=== PATIENT | male | born 1955 | race Two or more races ===

== ENCOUNTER 2020-02-17 18:46 | Inpatient (IN) | payer OTHER ==
[~2020-02-17] VITALS: Ht 177.8 cm; Wt 139.9 kg
[2020-02-17 19:24] LABS: Basophils # (auto) 0.1 10 ^3/uL (0-0.2); Basophils % (auto) 0.6 % (0.0-2.0); Eosinophils # (auto) 0 10 ^3/uL (0-0.8); Eosinophils % (auto) 0.1 % (0.0-7.0); Hemoglobin 11.6 g/dL (13.5-17.5); Lymphocytes # (auto) 0.9 10 ^3/uL (0.4-5.4); Lymphocytes % (auto) 5.5 % (10.0-50.0); Mean Corpuscular Hemoglobin 29.9 pg (28.0-32.0); Mean Corpuscular Hgb Conc. 32.2 g/dL (32.0-36.0); Mean Corpuscular Volume 92.8 fL (80.0-100.0); Monocytes # (auto) 1.3 10 ^3/uL (0-1.3); Monocytes % (auto) 7.8 % (0.0-12.0); Neutrophils # (auto) 14.1 10 ^3/uL (1.6-8.6); Platelet Count (auto) 125 10^3/uL (140-450); Red Blood Cells 3.88 10^6/uL (4.5-5.90); Red Cell Distribution Width 14.5 % (11.8-14.3); White Blood Cell 16.4 10^3/uL (4.4-10.8)
[2020-02-17] MEDS ORDERED: SODIUM CHLORIDE 0.9% 1,000 ML IV ONE ×2 (19:30→20:15)
[2020-02-17] MEDS ORDERED: ACETAMINOPHEN 500 MG TAB PO ONE (19:45)
[2020-02-17 19:51] LABS: Alanine Aminotransferase 28 U/L (16-61); Albumin 2.7 g/dL (3.4-5.0); Anion Gap 9 (5-15); Aspartate Aminotransferase 56 U/L (15-37); BUN/Creatinine Ratio 7.6; Blood Alcohol < 3.0 mg/dL (0-5); Blood Urea Nitrogen 52 mg/dL (7-18); Calcium 8.5 mg/dL (8.5-10.1); Carbon Dioxide 23 mmol/L (21-32); Chloride 99 mmol/L (98-107); GFR African American 10 mL/min; GFR Non-African American 9 mL/min; Glucose 193 mg/dL (74-106); Potassium 4.9 mmol/L (3.5-5.1); Sodium 131 mmol/L (136-145)
[2020-02-17 19:54] LABS: INR 1.14 (0.9-1.15); Partial Thromboplastin Time 33.8 sec (23.0-31.2)
[2020-02-17 19:56] LABS: Alkaline Phosphatase 76 U/L (45-117); Bilirubin, Total 0.9 mg/dL (0.2-1.0)
[2020-02-17 20:38] LABS: Urine Bacteria FEW /hpf (None Seen); Urine Blood 2+ /uL (Negative); Urine Hyaline Cast MANY /lpf (0 - 2); Urine Mucus FEW (None Seen); Urine Specific Gravity 1.028 (1.001-1.035); Urine WBC 100 /hpf (0 - 3); Urine WBC Clumps PRESENT /hpf (None Seen)
[2020-02-17 20:56] LABS: Alcohol, Urine < 3.0 mg/dL (0-10); Amphetamine Screen, Urine NEGATIVE (NEGATIVE); Barbiturate Scree,Urine NEGATIVE (NEGATIVE); Benzodiazephine Screen, Urine NEGATIVE (NEGATIVE); Cannabinoid Screen, Urine NEGATIVE (NEGATIVE); Cocaine Screen, Urine NEGATIVE (NEGATIVE); Opiate Scree,Urine NEGATIVE (NEGATIVE); Phencyclidine Screen, Urine NEGATIVE (NEGATIVE)
[2020-02-17] MEDS ORDERED: PIPERACILLIN-TAZOB 3.375GM 100 ML IV ONE (21:15)
[2020-02-17] MEDS ORDERED: VANCOMYCIN 1GM/250ML 250 ML IV ONE (21:15)
[2020-02-17] MEDS ORDERED: LORazepam 2MG/ML-1ML VIAL IV ONE (21:45)
[2020-02-17 22:31] LABS: Lactic Acid w/Reflex 3.4 mmol/L (0.4-2.0)
[2020-02-17] MEDS ORDERED: NOREPINEPHRINE 8 MG/250ML KIT 250 ML IV ONE (23:05)
[2020-02-17] MEDS: NOREPINEPHRINE 8 MG/250ML KIT 250 ML IV SCH (23:10)
[2020-02-17] MEDS ORDERED: NOREPINEPHRINE 8 MG/250ML KIT 250 ML IV SCH (23:15)
[2020-02-17] MEDS ORDERED: ETOMIDATE (2MG/ML) 20ML VIAL IV ONE (23:30)
[2020-02-17] MEDS ORDERED: SUCCINYLCHOLINE CHLORIDE 20 MG/ML 10ML VIAL IV ONE (23:30)
[2020-02-17] MEDS ORDERED: fentaNYL Drip 2500mCg/250mlNS 250 ML IV ONE (23:47)
[2020-02-17] MEDS ORDERED: MIDAZOLAM HCL 5 MG/ML-1ML VIAL ONE (23:58)
[2020-02-17] MEDS: fentaNYL Drip 2500mCg/250mlNS 250 ML IV SCH (23:59)
[2020-02-18] VITALS (73 sets, daily range): BP systolic 55–147; BP diastolic 23–66
[2020-02-18] MEDS ORDERED: MIDAZOLAM DRIP 50 mg/50mL 50 ML IV ONE (00:21)
[2020-02-18] MEDS ORDERED: MIDAZOLAM HCL 5 MG/ML-1ML VIAL IV ONE (00:30)
[2020-02-18] MEDS: MIDAZOLAM DRIP 50 mg/50mL 50 ML IV SCH ×2 (00:33→19:30)
[2020-02-18] MEDS ORDERED: NITROGLYCERIN 0.4 MG SL TAB SL PRN (01:30)
[2020-02-18] MEDS ORDERED: VANCOMYCIN PER PHARMACY 0 MG IV SCH (01:30)
[2020-02-18] MEDS ORDERED: ONDANSETRON HCL 4 MG/2 ML VIAL IV PRN (01:30)
[2020-02-18] MEDS ORDERED: MORPHINE SULF INJ 2 MG/ML SYRINGE 1ML IV PRN (01:30)
[2020-02-18] MEDS ORDERED: SODIUM CHLORIDE 0.9% 1,000 ML IV SCH (01:30)
--- NOTE | 2020-02-18 02:53 | NUR ---
Admit to ICU from ER on RAPHAEL Rubioadmitted to ICU via guralexa on monitoring manager, intubated and being bagged by Respiratory Therapist. Patient transfered to bed, connected to mechanical ventilator by therapist, PRUDENCE at bedside. Patient connected to ICU monitoring, weighed by bedscale, oriented to OMAR BAL, primary RN, unit, ventilator and sedation. Neuro: bilateral pupils 2 mm/pinpoint; flaccid extremities; hypoactive cough/gag. Cardio: NSR 80s no ectopy noted; BP very low at 62/23; all pulses palpable; no edema noted. Resp: ET size 7.5/22 at the lip; settings PC rate 18, pressure 26, FiO2 75%, PEEP 5; anterior lung sounds diminished throughout; thin and clear secretions in mouth and ET tube. GI: NPO; inserted a 16 F NGT in right nare, asparted gastric contents, will obtain chest xray to confirm placement; absent bowel sounds; unknown last BM. : rodriguez inserted in ER; sediment/dark marya urine. Skin: left mehta abrasion optifoam changed; multiple abdominal incisions, two incisions with steri strips, others with glue/bandaids CDI. IVs: right AC 18 g running NS @ 60 inserted on 02/17/20; right hand 20 g running Levo @ 16 inserted on 02/17/20; IV left forearm 20 g inserted upon arrival to ICU 02/18/20 running Fentanyl at 100 mcg and Versed @ 4. Pending CT abdomen/pelvic/chest and head; also pending a pulmonary consultation with Dr. Chappell for acute respiratory failure. Will continue to round/reposition/perform oral care prn.
--- NOTE | 2020-02-18 04:00 | NUR ---
Cardiology consultation placed with approval from early interventionist hospitalist Mya for critically high troponins trending up. Last troponin 1.640.
--- NOTE | 2020-02-18 05:58 | NUR ---
Attempted to call CT to state patient's weight of 144.5 kg to see if CTs can be completed. No answer.
[2020-02-18] MEDS ORDERED: PIPERACILLIN-TAZOB 2.25GM 50 ML IV SCH (06:00)
--- NOTE | 2020-02-18 06:08 | NUR ---
Spoke with radiology/CT personnel, will call [phone] to have white lead grinder evaluate patient for CT. Patient is under the weight limit but abdominal circumference could possibly be to large for the machine.
--- NOTE | 2020-02-18 06:34 | NUR ---
Call from patient's sister Liliana: According to patient's sister, the patient recently had abdominal surgery related to colon cancer at [facility]. The patient was discharged home to his house. He lives home alone per the sister but lives close to a friend. The friend went to check on the patient after he wasn't returning phone calls and found the patient in his car with the door open, keys in ignition, altered. After the friend took the patient to his house, the patient was still altered and the friend called EMS. Per the sister, the patient has a history of CHRISTIAN with CPAP use, MN, HTN, CKD previously borderline for dialysis, colon cancer that was diagnosed 2 1/2 months ago, diabetes, and liver disease. Obtained med rec from last March but she states that [facility] should have the updated list as he was just discharged on Wednesday. Sister Liliana updated on patient's current status and pending orders. She wants to speak to the attending physician when they round. Will put note on hard chart and endorse to day shift RN.
[2020-02-18] MEDS ORDERED: METO5TAB56 PO (06:44)
[2020-02-18] MEDS ORDERED: METF-371 PO (06:44)
[2020-02-18] MEDS ORDERED: SIMV-8 PO (06:44)
[2020-02-18] MEDS ORDERED: LISI-275 PO (06:44)
[2020-02-18] MEDS ORDERED: POTA10TA51 PO (06:44)
[2020-02-18] MEDS ORDERED: METO-158 PO (06:44)
[2020-02-18] MEDS ORDERED: TICA90TA PO (06:44)
[2020-02-18] MEDS ORDERED: FURO40TA4 PO (06:44)
[2020-02-18] MEDS ORDERED: ASPI-543 PO (06:44)
--- NOTE | 2020-02-18 06:45 | NUR ---
TITRATED FIO2 DOWN TO 50%, SPO2 MAINTAINING 96%.
[2020-02-18 07:36] LABS: Eosinophils # (auto) 0.1 10 ^3/uL (0-0.8); Eosinophils % (auto) 0.9 % (0.0-7.0); Lymphocytes # (auto) 1.2 10 ^3/uL (0.4-5.4)
[2020-02-18 07:38] LABS: Basophils # (auto) 0.1 10 ^3/uL (0-0.2); Basophils % (auto) 0.4 % (0.0-2.0); Hematocrit 34.8 % (41.0-53.0); Hemoglobin 10.5 g/dL (13.5-17.5); Lymphocytes % (auto) 9.5 % (10.0-50.0); Mean Corpuscular Hemoglobin 29.6 pg (28.0-32.0); Mean Corpuscular Hgb Conc. 30.3 g/dL (32.0-36.0); Mean Corpuscular Volume 97.6 fL (80.0-100.0); Monocytes # (auto) 1.2 10 ^3/uL (0-1.3); Monocytes % (auto) 9.6 % (0.0-12.0); Neutrophils # (auto) 10.1 10 ^3/uL (1.6-8.6); Neutrophils % (auto) 79.6 % (37.0-80.0); Nucleated Red Blood Cells % 0.1 %; Platelet Count (auto) 137 10^3/uL (140-450); Red Blood Cells 3.56 10^6/uL (4.5-5.90); Red Cell Distribution Width 15.5 % (11.8-14.3); White Blood Cell 12.7 10^3/uL (4.4-10.8)
[2020-02-18 08:01] LABS: Albumin 2.3 g/dL (3.4-5.0); Calcium 8.2 mg/dL (8.5-10.1); Potassium 4.7 mmol/L (3.5-5.1)
[2020-02-18 08:09] LABS: BUN/Creatinine Ratio 9.5; Bilirubin, Total 1.2 mg/dL (0.2-1.0); Total Protein 5.8 g/dL (6.4-8.2)
--- NOTE | 2020-02-18 09:50 | NUR ---
MD Eid at bedside assessing pt, New orders received.
--- NOTE | 2020-02-18 09:55 | NUR ---
Cardiology Received call from MD Linda, made aware of troponin levels trending upward. stated to monitor no intervention at this time.
[2020-02-18] MEDS: ENOXAPARIN SOD 150 MG/1 ML SYRINGE SC SCH (10:00)
[2020-02-18] MEDS ORDERED: ENOXAPARIN SOD 100 MG/1 ML SYRINGE SC SCH (10:00)
[2020-02-18] MEDS ORDERED: HEPARIN SODIUM (PORCINE) 5000 UNITS/ML 1ML VIAL SC SCH (10:00)
[2020-02-18] MEDS ORDERED: LINEZOLID 600MG/300ML 300 ML IV SCH (10:00)
--- NOTE | 2020-02-18 10:00 | NUR ---
Nephrology MD Izquierdo phoned about pt, New orders received
--- NOTE | 2020-02-18 10:25 | NUR ---
WOUND CARE NOTE: Wound care in to see patient due to low Omi score of 13 and intubation status putting patient to high risk for skin breakdown. Patient is 65 years old male with admitting diagnosis of Acute Resp Failure. Patient is resting in low air loss bed in ICU Rm. 109. Patient is on airborne precaution to R/O CoVid. Patient appears to be in no pain using Guillaume Oh Faces Pain Scale. Skin assessment done with the assistance of patient's nurse, ANDREEA Toney. Well approximated incision noted to patient's medial abdomen measuring 8cm and multi puncture, small incisions noted to patient's Rt and Lt.upper and lower abdominal quadrant, history of colon surgery at different facility. Medial abdominal incision is open to air, small/puncture incisions has intact steri strips and band aids, surrounding skin is pink, clean and dry. Patient's L mehta noted with 2.5x0.8cm open partial thickness skin tear. Wound is red with pink siva wound, no drainage/odor noted. Bedside nurse, cleansed patient's L mehta skin tear, applied Thera honey and covered with Opti foam gentle dressing per MD order. No pressure injury noted. Repositioned patient for comfort facing his Lt side, redistributed pressure points with pillows. Patient tolerated well. ANDREEA Toney at bedside. RECOMMENDATION: Nursing to continue with BID/PRN cleaning and application of Barrier cream to sacral, buttocks as preventative,Q3Days/PRN dressing change to L mehta skin tear per MD order, frequent turning and repositioning schedule as condition permits, redistribute pressure points with pillows, elevate heels on pillows, continue monitoring by wound care while patient is mechanically ventilated. Addendum: 02/18/20 at 1215 by Veroncia Gottlieb RN Amended: Links added.
--- NOTE | 2020-02-18 10:30 | NUR ---
Obtained consent for release of medical records from sister, MARTIN Ford
--- NOTE | 2020-02-18 11:01 | NUR ---
Called [facility] in [place] where pt was discharged from to get medical records per MD, beater operator stated medical records is closed today. No answer from phone number they transferred me to.
--- NOTE | 2020-02-18 12:10 | NUR ---
RT Transport Note: Patient transported to RADIOLOGY/CT with ANDREEA REED. Patient transported on cardiac rehabilitation program director with alarms set and audible, transport vent connected to O2 tank, ambu-bag/mask available with transport. Patient returned to ICU 109 with no adverse reaction noted. Transport completed without incident.
--- NOTE | 2020-02-18 12:29 | NUR ---
Pt taken to CT via ACLS guidelines and back without any events.
--- NOTE | 2020-02-18 12:42 | NUR ---
TITRATED FIO2 TO 35%, SPO2 MAINTAINING 95%
[2020-02-18] MEDS: ACETAMINOPHEN 650 mg PER 20.3 mL UD PO PRN ×2 (12:49→19:30)
[2020-02-18 12:51] LABS: Sodium Urine 16 mmol/L (40-220)
[2020-02-18] MEDS: MEROPENEM 500MG IVPB 50 ML IV SCH (13:00)
[2020-02-18] MEDS: LINEZOLID 600MG/300ML 300 ML IV SCH ×2 (13:00→23:57)
--- NOTE | 2020-02-18 13:00 | NUR ---
Temperature Temp of 102.0 MD michaud aware and ordered 650 mg of liquid tylenol. Will administer and reassess. Cooling measure applied; ice packs bilaterally and cooling blanket placed underneath pt.
[2020-02-18 13:01] LABS: Creatinine, Urine 379 mg/dL (30.0-125.0)
--- NOTE | 2020-02-18 13:44 | NUR ---
Surgical Consult Received call from Dr. Enciso, stated to obtain medical records first. aware that the facility attempting to obtain medical records from is closed today.
[2020-02-18] MEDS: SODIUM BICARBONATE 50ML VIAL 50 ML in SOD CHL 0.45% 1,000 ML IV SCH ×2 (13:59→23:45)
--- NOTE | 2020-02-18 15:03 | NUR ---
VENT CHANGES RT AT BEDSIDE, NOTICED CHANGES TO VENT SETTINGS. VERIFIED ORDERS WITH DR. BRAVO. PT NOW ON SETTINGS: PCV, RR 18, IP 18, PEEP +7, I TIME 0.7, FIO2 40%. ABG TO FOLLOW TOMORROW MORNING. NOTIFIED RN OF CHANGES.
--- NOTE | 2020-02-18 15:14 | NUR ---
PICC line placement Patient/Patient significant other educated on need for PICC line placement. All risks and benefits explained and all questions and concerns addressed prior to procedure. Noted past medical history and allergies with no contraindications. INR and Plt counts within acceptable range. 5 fr PICC line inserted via RIGHT BASILIC vein using My [employer]'s [employer] R[employer] US and Tip Location System. Sterile technique with maximum barrier precautions utilized. Blood return obtained from each of THE THREE lumens and each flushed easily with NS using proper technique. 5F PICC secured with Stat-lock; biodisc and occlusive dressing applied. Stat portable chest x-ray obtained for PICC tip placement. *Baseline Arm Circumference 39CM. INTERNAL LENGTH 44CM. EXTERNAL LENGTH 0 CM. . PICC lot # [id number]. Note:
[2020-02-18] MEDS ORDERED: LIDOCAINE 1% (LOCAL ANESTH.) PF 5ml SDV ID ONE (15:15)
--- NOTE | 2020-02-18 15:21 | NUR ---
OK to use PICC line Xray completed. OK to use PICC line . PRIMARY RN NOTIFIFED
--- NOTE | 2020-02-18 16:30 | NUR ---
Medical records obtained and placed in chart
[2020-02-18] MEDS ORDERED: VANCOMYCIN 1GM/250ML 250 ML IV ONE (17:00)
[2020-02-18] MEDS ORDERED: DEXTROSE (50%) 50ML SYRG IV PRN (17:15)
[2020-02-18] MEDS ORDERED: OPTISON 3ml Vial for INJ IV ONE (17:19)
--- NOTE | 2020-02-18 17:30 | NUR ---
Deepa administered for echo. LOT:[id number] EXP: 03 JUN 2021
[2020-02-18] MEDS: ACCU-CHEK COMFORT CURVE STRIP VI SCH ×2 (18:00→23:59)
[2020-02-18] MEDS: InsuLIN REG 1unit/0.01ml Soln (100units/ml) SC SCH ×2 (18:00→23:58)
[2020-02-18] MEDS: fentaNYL Drip 2500mCg/250mlNS 250 ML IV SCH (18:29)
[2020-02-18] MEDS: NOREPINEPHRINE 8 MG/250ML KIT 250 ML IV SCH (19:28)
--- NOTE | 2020-02-18 19:43 | NUR ---
Report given to die sinking machine operator RN
--- NOTE | 2020-02-18 19:45 | NUR ---
Opening Shift Note: Neuro: bilateral pupils 2 mm/pinpoint; flaccid extremities; hypoactive cough/gag. Cardio: NSR 90s - ST 100s BBB; SBPs 90s; all pulses palpable; no edema noted. Resp: ET size 7.5/22 at the lip; settings PC rate 18, pressure 18, FiO2 40%, PEEP 7; anterior lung sounds diminished throughout; thin and clear secretions in mouth and ET tube. GI: NPO; 16 F NGT in right nare, absent bowel sounds; unknown last BM. : rodriguez inserted in ER; sediment/dark marya urine. Skin: left mehta abrasion optifoam changed; multiple abdominal incisions, two incisions with steri strips, others with glue/bandaids CDI. IVs: right AC 18 g IID inserted on 02/17/20; right hand 20 g running NS/ABX 02/17/20; IV left forearm 20 g inserted on 02/18/20 IID; RUE PICC inserted on 02/18/20 running Fentanyl @ 150, Versed 7, Levo @ 26, and Bicarb @ 100. Pending EEG and surgical consultation with Dr. Enciso/CMP/CBC/ABG/CXR in AM. Will continue to round/reposition/perform oral care prn.
[2020-02-18] MEDS: SODIUM CHLOR 0.9% PF (SALINE LOCK) 10ML VIAL/SYR IV SCH (20:37)
[2020-02-18] MEDS ORDERED: VASOPRESSIN 20 UNIT/ML ONE (21:33)
[2020-02-18] MEDS: VASOPRESSIN 50 UNITS in D5W 5% 247.5 ML IV SCH (21:45)
--- NOTE | 2020-02-18 21:45 | NUR ---
Low blood pressures: RR is in the 30s despite current sedation and not getting volume, page sent to combination saw operator hospitalist for addition pressor as I increase sedation medications. New order obtained for vasopressin.
--- NOTE | 2020-02-18 23:40 | NUR ---
Page sent to Dr. Link related to rate still in the 30s despite max sedation on Versed and Fentanyl.
[2020-02-19] VITALS (102 sets, daily range): BP systolic 77–179; BP diastolic 30–71
[2020-02-19] MEDS: NOREPINEPHRINE 8 MG/250ML KIT 250 ML IV SCH ×5 (00:23→23:51)
[2020-02-19] MEDS: MIDAZOLAM DRIP 50 mg/50mL 50 ML IV SCH ×4 (00:24→16:11)
[2020-02-19] MEDS: ACETAMINOPHEN 650 mg PER 20.3 mL UD PO PRN (02:00)
--- NOTE | 2020-02-19 02:53 | NUR ---
Patient bathe/linen change Patient given complete CHG bath. Skin integrity assessed for any changes. Bandaids on abdomen changed. Linens and gown changed. Patient repositioned for comfort.
[2020-02-19 04:06] LABS: Basophils # (auto) 0.1 10 ^3/uL (0-0.2); Basophils % (auto) 0.6 % (0.0-2.0); Eosinophils # (auto) 0.1 10 ^3/uL (0-0.8); Eosinophils % (auto) 0.7 % (0.0-7.0); Hematocrit 34.6 % (41.0-53.0); Hemoglobin 10.9 g/dL (13.5-17.5); Lymphocytes # (auto) 1.2 10 ^3/uL (0.4-5.4); Lymphocytes % (auto) 7.9 % (10.0-50.0); Mean Corpuscular Hemoglobin 30.2 pg (28.0-32.0); Mean Corpuscular Hgb Conc. 31.5 g/dL (32.0-36.0); Mean Corpuscular Volume 95.7 fL (80.0-100.0); Monocytes # (auto) 1.9 10 ^3/uL (0-1.3); Monocytes % (auto) 12.2 % (0.0-12.0); Neutrophils # (auto) 12.3 10 ^3/uL (1.6-8.6); Neutrophils % (auto) 78.6 % (37.0-80.0); Nucleated Red Blood Cells % 0.1 %; Platelet Count (auto) 174 10^3/uL (140-450); Red Blood Cells 3.61 10^6/uL (4.5-5.90); Red Cell Distribution Width 15.3 % (11.8-14.3); White Blood Cell 15.7 10^3/uL (4.4-10.8)
[2020-02-19 04:24] LABS: Albumin 2.3 g/dL (3.4-5.0); Calcium 8.4 mg/dL (8.5-10.1)
[2020-02-19 04:27] LABS: BUN/Creatinine Ratio 9.3; Bilirubin, Total 0.7 mg/dL (0.2-1.0); Total Protein 6.8 g/dL (6.4-8.2)
[2020-02-19 04:50] LABS: Potassium 6.3 mmol/L (3.5-5.1)
[2020-02-19] MEDS: ACCU-CHEK COMFORT CURVE STRIP VI SCH ×3 (05:08→23:01)
[2020-02-19] MEDS: InsuLIN REG 1unit/0.01ml Soln (100units/ml) SC SCH ×3 (05:08→22:55)
--- NOTE | 2020-02-19 05:26 | NUR ---
Critical high potassium: Page sent to airfield operations specialist hospitalist in regards to critical high potassium of 6.3.
[2020-02-19] MEDS: fentaNYL Drip 2500mCg/250mlNS 250 ML IV SCH ×2 (06:50→19:16)
--- NOTE | 2020-02-19 06:50 | NUR ---
Orders received from economic forecaster hospitalist for 25 ml of Dextrose; 10 units of regular insulin IVP; 1 g of calcium gluconate; 1 amp of bicarbonate; 10 g of lokelma.
--- NOTE | 2020-02-19 06:50 | NUR ---
Spoke with Dr. Link about ventilator dyssynchrony despite increasing sedation. Stated he will make changes once he rounds on patient.
[2020-02-19] MEDS ORDERED: InsuLIN REG 1unit/0.01ml Soln (100units/ml) IV ONE (07:45)
[2020-02-19] MEDS ORDERED: DEXTROSE (50%) 50ML SYRG IV ONE (07:45)
[2020-02-19] MEDS ORDERED: SODIUM ZIRCONIUM CYCL 10 GM PAK PO ONE (07:45)
[2020-02-19] MEDS ORDERED: SODIUM BICARBONATE 8.4% INJ 50ML SYRINGE IV ONE (07:45)
[2020-02-19] MEDS ORDERED: CALCIUM GLUC 4.65meq/50ml D5AE 50 ML IV ONE (07:45)
--- NOTE | 2020-02-19 07:50 | NUR ---
DR. RIVAS HERE TO SEE PATIENT. SEE MD NOTES AND EMR FOR ANY NEW ORDERS.
--- NOTE | 2020-02-19 08:00 | NUR ---
Respiratory note: AFTER REVIEWING CXR, ETT ADVANCED. ETT NOW SECURED AT 25 CM. ANDREEA BEE AT BEDSIDE AND AWARE OF CHANGE.
[2020-02-19] MEDS: SODIUM BICARBONATE 50ML VIAL 50 ML in SOD CHL 0.45% 1,000 ML IV SCH (08:22)
[2020-02-19] MEDS ORDERED: PHENYLEPHRINE IV 250 ML IV ONE ×2 (08:45→09:01)
[2020-02-19] MEDS: PHENYLEPHRINE IV 250 ML IV SCH ×2 (09:15→13:26)
[2020-02-19] MEDS: SODIUM CHLOR 0.9% PF (SALINE LOCK) 10ML VIAL/SYR IV SCH ×2 (09:16→22:34)
[2020-02-19] MEDS: MEROPENEM 500MG IVPB 50 ML IV SCH (09:18)
[2020-02-19] MEDS: ENOXAPARIN SOD 150 MG/1 ML SYRINGE SC SCH (09:40)
--- NOTE | 2020-02-19 10:30 | NUR ---
CALL OUT TO DR. ALONSO TO RE-REPORT ABG WITH PH OF 7.05. AWAITING CALL BACK.
--- NOTE | 2020-02-19 11:04 | NUR ---
DR. PIERRE HERE TO SEE PATIENT. SEE MD NOTES AND EMR FOR ANY NEW ORDERS.
[2020-02-19] MEDS: LINEZOLID 600MG/300ML 300 ML IV SCH ×2 (12:10→23:50)
--- NOTE | 2020-02-19 12:52 | NUR ---
DR. IYER HERE TO SEE PATIENT. SEE MD NOTES AND EMR FOR ANY NEW ORDERS.
--- NOTE | 2020-02-19 12:55 | NUR ---
CALLED AND SPOKE TO SISTER CHADWICK WHO STATED THAT SHE IN FACT DOES WANT PATIENT TO BE A MODIFIED DNR. SHE IS AWARE THAT PATIENT IS CURRENTLY SEDATED AND INTUBATED AND ON PRESSORS HOWEVER, SHE DOES NOT WANT CPR, CHEST COMPRESSIONS OR SHOCK TO RESTART HEART IF IT SHOULD STOP. SISTER WISHES FOR HER BROTHER TO PASS AWAY PEACEFULLY.
[2020-02-19] MEDS ORDERED: HYDROCORTISONE SOD SUCC 100 MG/2ML INJ VIAL IV ONE (13:00)
[2020-02-19] MEDS ORDERED: DEXTROSE (50%) 50ML SYRG IV PRN ×2 (13:00→19:45)
[2020-02-19] MEDS: VASOPRESSIN 50 UNITS in D5W 5% 247.5 ML IV SCH (13:26)
[2020-02-19] MEDS: SODIUM BICARBONATE 50ML VIAL 150 ML in D5W 5% 1,000 ML IV SCH ×2 (13:27→14:53)
[2020-02-19] MEDS ORDERED: BUMETANIDE 2.5mg/10ml (0.25 mg/ml) INJ IV ONE (16:00)
--- NOTE | 2020-02-19 17:20 | NUR ---
REPORT RECEIVED FROM DAY RN. PT INTUBATED AND SEDATED. NO DISTRESS NOTED. SEE IV SPREADSHEET FOR LAST TITRATION CHANGES. WILL CONTINUE TO MONITOR.
[2020-02-19] MEDS ORDERED: InsuLIN REG 1unit/0.01ml Soln (100units/ml) SC SCH (18:00)
[2020-02-19] MEDS ORDERED: ACCU-CHEK COMFORT CURVE STRIP VI SCH (18:00)
[2020-02-19] MEDS: LACTULOSE 20Gm/30ML SOLN PO SCH ×2 (18:03→22:35)
--- NOTE | 2020-02-19 19:30 | NUR ---
REPORT RECEIVED, ASSUMED CARE.
--- NOTE | 2020-02-19 19:33 | NUR ---
CLOSING NOTE REPORT GIVEN TO SANTOS RN. PT INTUBATED AND SEDATED. BED LOCKED FOR SAFETY.
--- NOTE | 2020-02-19 20:37 | NUR ---
Respiratory note: AT BEDSIDE FOR ROUTINE VENT CHECK. NO CHANGES MADE. PTS CURRENT TEMP IS 100.0F. WILL CONTINUE TO MONITOR.
--- NOTE | 2020-02-19 21:22 | NUR ---
CALLED SPOKE WITH SISTER BEN OF PT, DECISION MAKER AT THIS TIME. CONFIRMED WITH HER OKAY FOR ACLS DRUGS AND VASOPRESSORS.
[2020-02-19] MEDS: HYDROCORTISONE SOD SUCC 100 MG/2ML INJ VIAL IV SCH (22:35)
--- NOTE | 2020-02-19 23:01 | NUR ---
PAGE OUT TO HOSPITALIST REGARDING BLOOD SUGAR 463, GAVE 20 UNITS REGULAR INSULIN SUB Q PER MD ORDER. AWAITING CALLBACK.
--- NOTE | 2020-02-19 23:49 | NUR ---
3RD PAGE OUT FOR HOSPITALIST.
[2020-02-20] VITALS (104 sets, daily range): BP systolic 84–182; BP diastolic 38–87
[2020-02-20] MEDS: ACCU-CHEK COMFORT CURVE STRIP VI SCH ×6 (00:59→20:00)
[2020-02-20] MEDS: InsuLIN REG 1unit/0.01ml Soln (100units/ml) SC SCH ×6 (01:00→20:00)
[2020-02-20] MEDS: PHENYLEPHRINE IV 250 ML IV SCH ×3 (01:40→17:48)
--- NOTE | 2020-02-20 01:46 | NUR ---
PT DEANNE, MARCELLO BLUE CALLED. PT CHEM CODE. Addendum: 02/20/20 at 0546 by Reginaldo Cordova RN WRONG PT
--- NOTE | 2020-02-20 01:47 | NUR ---
EPINEPHRINE IVP GIVEN, PT STILL ASYSTOLE, ALL SEDATION STOPPED. Addendum: 02/20/20 at 0546 by Reginaldo Cordova RN WRONG PT.
--- NOTE | 2020-02-20 01:48 | NUR ---
HOSPITALIST @ BEDSIDE. Addendum: 02/20/20 at 0547 by Reginaldo Cordova RN WRONG PT.
--- NOTE | 2020-02-20 01:49 | NUR ---
2ND EPINEPHRINE IVP GIVEN, NO CHANGE, PT STILL ASYSTOLE. PT CHEM CODE PER FAMILY WISHES. HOSPITALIST NOTIFIED. Addendum: 02/20/20 at 0548 by Reginaldo Cordova RN WRONG PT.
--- NOTE | 2020-02-20 01:50 | NUR ---
DOPPLER USED, NO PULSE NOTED, PT STILL ASYSTOLE, CODE STOPPED, PT PRONOUNCED. Addendum: 02/20/20 at 0549 by Reginaldo Cordova RN WRONG PT.
[2020-02-20] MEDS: LACTULOSE 20Gm/30ML SOLN PO SCH (02:00)
[2020-02-20 04:43] LABS: Basophils # (auto) 0 10 ^3/uL (0-0.2); Basophils % (auto) 0.1 % (0.0-2.0); Eosinophils # (auto) 0 10 ^3/uL (0-0.8); Eosinophils % (auto) 0.1 % (0.0-7.0); Hematocrit 31.7 % (41.0-53.0); Hemoglobin 10.3 g/dL (13.5-17.5); Lymphocytes # (auto) 0.6 10 ^3/uL (0.4-5.4); Lymphocytes % (auto) 5.3 % (10.0-50.0); Mean Corpuscular Hemoglobin 30.1 pg (28.0-32.0); Mean Corpuscular Hgb Conc. 32.5 g/dL (32.0-36.0); Mean Corpuscular Volume 92.6 fL (80.0-100.0); Monocytes # (auto) 0.9 10 ^3/uL (0-1.3); Monocytes % (auto) 8.2 % (0.0-12.0); Neutrophils # (auto) 9.5 10 ^3/uL (1.6-8.6); Neutrophils % (auto) 86.3 % (37.0-80.0); Nucleated Red Blood Cells % 0.1 %; Platelet Count (auto) 137 10^3/uL (140-450); Red Blood Cells 3.42 10^6/uL (4.5-5.90); White Blood Cell 10.9 10^3/uL (4.4-10.8)
[2020-02-20 05:03] LABS: % Iron Saturation 19.5 % (20-55); Calcium 8.2 mg/dL (8.5-10.1)
[2020-02-20 05:05] LABS: BUN/Creatinine Ratio 10.7
[2020-02-20 05:21] LABS: Potassium 5.7 mmol/L (3.5-5.1)
--- NOTE | 2020-02-20 05:21 | NUR ---
FAMILY PICKED [facility], . CALLED [employer], NO ANSWER, LEFT MESSAGE. WILL NOTIFY TL AND HOUSE SUP, WHEN FAMILY FINISHED VISITING THEIR LOVED ONE. Addendum: 02/20/20 at 0525 by Reginaldo Cordova RN WRONG PT
--- NOTE | 2020-02-20 05:23 | NUR ---
ALL PT BELONGINGS GIVEN TO MAGNOLIA SANDIP AT [facility]. Addendum: 02/20/20 at 0524 by Reginaldo Cordova RN WRONG PT.
--- NOTE | 2020-02-20 05:26 | NUR ---
LAB CALLED: CRITICAL LABS K+ 5.7, TRENDING DOWN AND BLOOD GLUCOSE 484, HOSPITALIST AWARE OF CRITICALLY HIGH GLUCOSE. SPOKE WITH MOHINDER OSLITARIO HE SAID HE WOULD BRING IT UP TO AMY ABOUT MAYBE SWITCHING FLUIDS FROM D5W WITH 3 AMPS HCO3 @ 100ML/HR TO NA WITH 3 AMPS OF BICARB @ 100ML/HR.
[2020-02-20] MEDS ORDERED: LACTULOSE 20Gm/30ML SOLN ONE (05:59)
[2020-02-20] MEDS: SODIUM BICARBONATE 50ML VIAL 150 ML in SOD CHL 0.45% 1,000 ML IV SCH ×2 (06:53→18:11)
[2020-02-20] MEDS ORDERED: SODIUM CHL 0.9% 1000 ML BAG XX ONE (07:00)
[2020-02-20] MEDS: INSULIN LANTUS (GLARGINE) 1 /0.01ml (100units/ml) SC SCH (08:35)
[2020-02-20] MEDS ORDERED: ALBUTEROL SULF 2.5 MG/0.5ML(0.5%) NEB SOLN NEB ONE (08:45)
[2020-02-20] MEDS ORDERED: InsuLIN REG 1unit/0.01ml Soln (100units/ml) IV ONE (09:15)
--- NOTE | 2020-02-20 09:55 | NUR ---
MD AT BEDSIDE: Dr. Izquierdo at beside, discussed with him cancelation of Tansferrin by laboratory staff stating that this specimen is "a send out" and is "non-orderable".
[2020-02-20] MEDS: SODIUM CHLOR 0.9% PF (SALINE LOCK) 10ML VIAL/SYR IV SCH ×2 (10:00→22:00)
[2020-02-20] MEDS: HYDROCORTISONE SOD SUCC 100 MG/2ML INJ VIAL IV SCH ×2 (10:06→22:35)
[2020-02-20] MEDS: ENOXAPARIN SOD 150 MG/1 ML SYRINGE SC SCH (10:06)
[2020-02-20] MEDS: MEROPENEM 500MG IVPB 50 ML IV SCH (10:06)
[2020-02-20] MEDS: NOREPINEPHRINE 8 MG/250ML KIT 250 ML IV SCH ×2 (10:07→20:00)
[2020-02-20] MEDS: LINEZOLID 600MG/300ML 300 ML IV SCH (12:45)
--- NOTE | 2020-02-20 13:00 | NUR ---
CONSENTS OBTAINED; Consent for insertion of hemodialysis catheter obtained from patient's sister Liliana. Liliana states that she is driving from [place] and is expected to be in town by tomorrow.
--- NOTE | 2020-02-20 13:45 | NUR ---
AT BEDSIDE; Dr. Davies at bedside for dialysis catheter insertion. STAT CXR obtained.
[2020-02-20] MEDS ORDERED: HEPARIN SODIUM (PORCINE) 5000 UNITS/ML 1ML VIAL ONE (13:51)
--- NOTE | 2020-02-20 14:35 | NUR ---
CHEST X-RAY RESULTS; Chest X-ray results reviewed, no pneumo, catheter okay for use.
--- NOTE | 2020-02-20 14:47 | NUR ---
Nutrition Assessment Consider Nepro CS 1.8 at 45 ml/hr per MD approval while pt is receiving HD Est energy needs 1244-8127 kcal (11-14 kcal/kg BW 151kg) Est protein needs 91-113g (1.2-1.5g/kg IBW r/t pt is on HD) Will monitor and reassess prn. Addendum: 02/20/20 at [address] Amended: Links added.
--- NOTE | 2020-02-20 15:20 | NUR ---
DIALYSIS NURSE: Informed [facility] dialysis nurse that dialysis catheter is in place and is ready for use. States that he has been assigned to another patient.
[2020-02-20] MEDS ORDERED: BUMETANIDE 2.5mg/10ml (0.25 mg/ml) INJ IV ONE (15:30)
[2020-02-20 16:33] LABS: BUN/Creatinine Ratio 13.1; Calcium 7.4 mg/dL (8.5-10.1); Potassium 4.1 mmol/L (3.5-5.1)
[2020-02-20] MEDS ORDERED: BUMETANIDE INJECTION 10 ML ONE (18:09)
[2020-02-20] MEDS: fentaNYL Drip 2500mCg/250mlNS 250 ML IV SCH (20:00)
--- NOTE | 2020-02-20 20:00 | NUR ---
ADMITTED ON 02/12/2020. INITALLY, ALOC, FEVER, ELEVATED GLUCOSE. MD DIAGNOSIS: RESPIRATORY FAILURE, RENAL FAILURE, SEPSIS. CHADWICK, HIS SISTER IS COMING FROM [place] TO VISIT. INFORMED HER THAT SHE WOULD NOT BE ABLE TO VISIT DUE TO COVID GUIDELINES. SHE INFORMED ME THAT THEY WERE HALF THE WAY HERE AND STILL COMING. RECENT DISCHARGE FROM [facility] . THERE HE HAD COLON SURGERY. MIDLINE INCISION AND 6 PUNCTURE WOUNDS FROM THE LAPARASCOPIC PART OF THE PROCEDURE. ALL ARE CLOSED, DRY AND OPEN TO AIR. NO COUGH, BLINK, GAG REFLEX. PUPILS 3 AND BRISK. ORAL CAVITY: SUCTIONED A MODERATE AMOUNT OF WHITE SECRETIONS. ORAL CARE PERFORMED. ORALLY INTUBATED. ETT TO VENTILATOR. ON PRESSURE CONTROL VENTILATION. PEEP IS 7, FIO2 50%. PRESSURING THE VENTILATOR. INCREASED HIS SEDATION (FENTANYL) FROM 100 TO 125. LUNGS CLEAR. SMALL AMOUNT OF WHITE SECRETIONS SUCTIONED FROM THE ETT. RIGHT NARE NGT TO LIS. 50CC OF GREEN LIQUID IN CANNISTER. FLUSHED NGT WITH 30CC OF WATER. ABDOMEN IS LARGE, ROUND AND SOFT. NO BOWEL SOUNDS. TAO IN PLACE DRAINING A LARGE AMOUNT OF YELLOW LIQUID TO DOWN DRAIN BAG. PITTING EDEMA IN ARMS AND LEGS. SCDS ON. DIALYSIS CATHETER PATENT. DIALYSIS DUE IN AM. ON A SODIUM BICARB DRIP UNTIL AFTER DIALYSIS TOMORROW. CURRENT BICARB LEVEL IS 24. SBP SUPPORTED WITH LEVOPHED. HEART RHYTHM: NSR 74. HE HAS A TACHY LOGAN SYNDROME . NO ECTOPY SEEN AT THIS MOMENT.ALL PULSES PALPABLE AND WEAK. ALL EXTREMITIES WARM.
[2020-02-20] MEDS: VASOPRESSIN 50 UNITS in D5W 5% 247.5 ML IV SCH (20:45)
--- NOTE | 2020-02-20 22:00 | NUR ---
AT 2211, THE PATIENT HAD A TACHYCARDIA OF 150 THAT WAS SELF LIMITING. AT 2214 HE WENT DOWN TO 90. IT TOOK AWHILE FOR HIS RHYTHM TO GO BACK TO 70. IT WAS 100 WITH FREQUENT PACS AND THEN 90 WITH PACS. HIS BLOOD PRESSURE DID DROP TO 56/35 AT THE TIME WHEN HIS RATE WAS 150. LEVOPHED HAS STAYED AT 12MCG SINCE 1899. HIS NSR RESOLVED AND THE CURRENT BLOOD PRESSURE IS 90/50. HR IS 72. REPOSITIONED TO BACK. HIS VENTILATOR IS PRESSURING LESS ON HIS BACK. SUCTIONED THE ETT. ORAL CARE DONE. GOOD URINE OUTPUT.
[2020-02-21] VITALS (84 sets, daily range): BP systolic 72–179; BP diastolic 33–111
--- NOTE | 2020-02-21 | NUR ---
HAVE DECREASED THE LEVOPHED. NSR WITHOUT ECTOPY. HAS A BBB. SBP IMPROVING. NO FEVER. LUNGS CLEAR. SUCTIONED THE ETT. SMALL AMOUNT OF CREAMY SECRETIONS. ORAL CARE DONE. ORAL CAVITY CLEAN. ABDOMEN VERY ROUND, LARGE, SOFT. NO BOWEL SOUNDS. NGT CONTINUES TO DRAIN GREEN LIQUID. NOW HAVE 150CC. TAO OUTPUT SO FAR 1650CC. PITTING EDEMA IN ARMS AND LEGS PERSISTS. STARTED THE SHIFT WITH A FIO2 OF 50%, AT 2200 RT DECREASED IT TO 45%. ALL PULSES PALPABLE AND STRONG. ALL EXTREMITIES ARE WARM , BUT THE HANDS ARE COOL.
[2020-02-21] MEDS: LINEZOLID 600MG/300ML 300 ML IV SCH ×2 (00:07→12:15)
[2020-02-21] MEDS: InsuLIN REG 1unit/0.01ml Soln (100units/ml) SC SCH ×6 (00:12→20:00)
[2020-02-21] MEDS: MIDAZOLAM DRIP 50 mg/50mL 50 ML IV SCH (00:30)
--- NOTE | 2020-02-21 02:00 | NUR ---
TACHYCARDIA OF 140.
--- NOTE | 2020-02-21 02:30 | NUR ---
TACHYCARDIA HAS NOT RESOLVED, LIKE IT USUALLY DOES. HOSPITALIST PAGED. SBP DECREASED. INCREASED THE LEVOPHED
[2020-02-21] MEDS: PHENYLEPHRINE IV 250 ML IV SCH ×3 (02:40→19:20)
--- NOTE | 2020-02-21 02:45 | NUR ---
ORDER FOR 500 CC IV BOLUS
[2020-02-21] MEDS: ACCU-CHEK COMFORT CURVE STRIP VI SCH ×6 (04:00→20:00)
--- NOTE | 2020-02-21 04:00 | NUR ---
THE PATIENTS RHYTHM HAS RANGED FROM SINUS TACHY TO ATRIAL FIB. RATE HAS RANGED FROM 108 TO 160. THE BOLUS DID NOT WORK. CALL INTO HOSPITALIST. SBP SUPPORT WITH LEVOPHED HAS INCREASED. ORDER RECEIVED FOR AMIODARONE DRIP FROM CALEB LEW
[2020-02-21] MEDS ORDERED: AMIODARONE HCL (50 MG/ ML) 3 ML VIAL IV ONE (04:28)
[2020-02-21] MEDS ORDERED: AMIODARONE HCL 150 MG in D5W 5% 100 ML IV ONE (04:30)
[2020-02-21] MEDS ORDERED: AMIODARONE 450mg/250ml AE 250 ML IV ONE (04:31)
[2020-02-21] MEDS ORDERED: AMIODARONE 450mg/250ml AE 250 ML IV SCH (04:45)
--- NOTE | 2020-02-21 04:45 | NUR ---
AMIODARONE DRIP STARTED FOR A HEART RATE OF 140, HEART RHYTHM SINUS TACHYCARDIA/ATRIAL FIB. HEART RATE HAS COME DOWN INTO THE 130 RANGE. LEVOPHED INCREASED.
[2020-02-21] MEDS: SODIUM BICARBONATE 50ML VIAL 150 ML in SOD CHL 0.45% 1,000 ML IV SCH (05:00)
[2020-02-21] MEDS: NOREPINEPHRINE 8 MG/250ML KIT 250 ML IV SCH (05:00)
[2020-02-21 05:55] LABS: Basophils # (auto) 0 10 ^3/uL (0-0.2); Basophils % (auto) 0.2 % (0.0-2.0); Eosinophils # (auto) 0 10 ^3/uL (0-0.8); Eosinophils % (auto) 0.1 % (0.0-7.0); Hematocrit 33.3 % (41.0-53.0); Hemoglobin 10.9 g/dL (13.5-17.5); Lymphocytes # (auto) 0.7 10 ^3/uL (0.4-5.4); Mean Corpuscular Hemoglobin 29.8 pg (28.0-32.0); Mean Corpuscular Hgb Conc. 32.8 g/dL (32.0-36.0); Mean Corpuscular Volume 90.8 fL (80.0-100.0); Monocytes # (auto) 1.2 10 ^3/uL (0-1.3); Monocytes % (auto) 8.3 % (0.0-12.0); Neutrophils # (auto) 12.8 10 ^3/uL (1.6-8.6); Neutrophils % (auto) 86.4 % (37.0-80.0); Nucleated Red Blood Cells % 0.2 %; Platelet Count (auto) 184 10^3/uL (140-450); Red Blood Cells 3.67 10^6/uL (4.5-5.90); Red Cell Distribution Width 14.9 % (11.8-14.3); White Blood Cell 14.8 10^3/uL (4.4-10.8)
--- NOTE | 2020-02-21 06:00 | NUR ---
HR RANGE 121-139. STILL IS A SINUS TACHYCARDIA
[2020-02-21 06:06] LABS: BUN/Creatinine Ratio 16.2; Calcium 8.1 mg/dL (8.5-10.1); Potassium 4.6 mmol/L (3.5-5.1)
[2020-02-21] MEDS: INSULIN LANTUS (GLARGINE) 1 /0.01ml (100units/ml) SC SCH (06:53)
--- NOTE | 2020-02-21 07:30 | NUR ---
Opening Shift Note Received pt on mechanical ventilator. GRACIELA PICC line, see IV spreadsheet for infusion details. Pt on fentanyl, levophed and 1/2 ns 3 amp bicarb gtt. Matt cath to right IJ placed 02/19. Full assessment done, see interventions. Pt does not have cough/gag, facial grimaces to deep stimulation and seen extremity movement. HR in 130's in and out of sinus tachycardia to a-fib, pt started on amio gtt this am. Garcia catheter draining to gravity, free of kinks. Bed locked in lowest position. All alarms on and audible.
--- NOTE | 2020-02-21 08:30 | NUR ---
Dialysis nurse at bedside aware of unstable HR at this time. MD childress aware, told dialysis rn to hold off on dialysis at this time.
[2020-02-21] MEDS: ENOXAPARIN SOD 150 MG/1 ML SYRINGE SC SCH (09:26)
[2020-02-21] MEDS: HYDROCORTISONE SOD SUCC 100 MG/2ML INJ VIAL IV SCH ×2 (09:26→22:06)
[2020-02-21] MEDS: SODIUM CHLOR 0.9% PF (SALINE LOCK) 10ML VIAL/SYR IV SCH ×2 (10:00→22:06)
--- NOTE | 2020-02-21 10:30 | NUR ---
Left message with cardiology concerning pt's rhythm and rate. Awaiting call back
[2020-02-21] MEDS: MEROPENEM 500MG IVPB 50 ML IV SCH (10:33)
--- NOTE | 2020-02-21 10:53 | NUR ---
Nephrology rounding on pt Aware of increase in urine output over the night. Will hold off on dialysis at this time per MD.
[2020-02-21] MEDS: AMIODARONE 450mg/250ml AE 250 ML IV SCH (11:00)
--- NOTE | 2020-02-21 11:00 | NUR ---
Amio switched to .5 per protocol
[2020-02-21] MEDS ORDERED: SODIUM BICARBONATE 50ML VIAL 150 ML in SOD CHL 0.45% 1,000 ML IV SCH (11:30)
--- NOTE | 2020-02-21 14:00 | NUR ---
MD michaud aware of pt HR and rhythm. No new orders at this time. Left message with cardiology again.
--- NOTE | 2020-02-21 16:00 | NUR ---
Pulmonology rounding on pt. no new orders at this time
[2020-02-21] MEDS: fentaNYL Drip 2500mCg/250mlNS 250 ML IV SCH (16:50)
[2020-02-21] MEDS: BUMETANIDE 2.5mg/10ml (0.25 mg/ml) INJ IV SCH (18:09)
--- NOTE | 2020-02-21 19:58 | NUR ---
ADMITTED ON 02/12/2020. INITALLY, ALOC, FEVER, ELEVATED GLUCOSE. MD DIAGNOSIS: RESPIRATORY FAILURE, RENAL FAILURE, SEPSIS. CHADWICK, HIS SISTER IS HERE FROM [place] TO VISIT. RECENT DISCHARGE FROM THE [facility] . THERE HE HAD COLON SURGERY. MIDLINE INCISION AND 4 PUNCTURE WOUNDS FROM THE LAPARASCOPIC PART OF THE PROCEDURE. ALL ARE CLOSED, DRY AND OPEN TO AIR. NO COUGH, BLINK, GAG REFLEX. PUPILS 3 AND BRISK. ORAL CAVITY: SUCTIONED A MODERATE AMOUNT OF WHITE SECRETIONS. ORAL CARE PERFORMED. ORALLY INTUBATED. ETT TO VENTILATOR. ON PRESSURE CONTROL VENTILATION. PEEP IS 7, FIO2 35%. PRESSURING THE VENTILATOR. FENTANYL INCREASED TODAY, HE IS WAKING UP. LUNGS CLEAR. SMALL AMOUNT OF WHITE SECRETIONS SUCTIONED FROM THE ETT. RIGHT NARE NGT TO LIS. FLUSHED NGT WITH 30CC OF WATER. ABDOMEN IS LARGE, ROUND AND SOFT. NO BOWEL SOUNDS. TAO IN PLACE DRAINING A LARGE AMOUNT OF YELLOW LIQUID TO DOWN DRAIN BAG. PITTING EDEMA IN ARMS AND LEGS. SCDS ON. DIALYSIS CATHETER PATENT RIJ. DIALYSIS HELD TODAY FOR GOOD URINE OUTPUT. ON A SODIUM BICARB DRIP AT A DECREASED RATE TODAY. CURRENT BICARB LEVEL IS 26.9. SBP SUPPORTED WITH LEVOPHED. HEART RHYTHM: AFIB/FLUTTER RATE 72 -140. HE HAS A TACHY LOGAN SYNDROME .PLACED ON AMIODARONE THIS AM AT [address]/AFIB. NO ECTOPY SEEN AT THIS MOMENT.ALL PULSES PALPABLE AND WEAK. ALL EXTREMITIES WARM.
[2020-02-21] MEDS: VASOPRESSIN 50 UNITS in D5W 5% 247.5 ML IV SCH (20:45)
--- NOTE | 2020-02-21 21:00 | NUR ---
REPOSITIONED. COOLING BLANKET AND OLD SHEETS REMOVED. CHECKED SACRAL SKIN, EVERYTHING LOOKS GOOD. NEW DRAW SHEET AND PAD PLACED. CONVERTED TO A RATE OF 70. ATRIAL FLUTTER.
--- NOTE | 2020-02-21 22:00 | NUR ---
REPOSITIONED. ATRIAL FIB/FLUTTER RATE 72. SBP SUPPORTED WITH LEVOPHED. STABLE BP. SUCTIONED ETT. ORAL CARE. GOOD URINE OUTPUT. NO FEVER.
[2020-02-22] VITALS (59 sets, daily range): BP systolic 61–178; BP diastolic 31–134
--- NOTE | 2020-02-22 | NUR ---
ORAL CARE DONE. SUCTIONED FOR A SMALL AMOUNT OF WHITE SECRETIONS. ATRIAL FLUTTER CONTROLLED RATE OF 75. SBP STABLE. LUNGS CLEAR. ABDOMEN SOFT. NGT DRAINING A LIGHT GREEN LIQUID. GOOD URINE OUTPUT. DRIPS: AMIODARONE, LEVOPHED AND TPN. Addendum: 02/22/20 at 0102 by THERON DEVLIN RN NO TPN
[2020-02-22] MEDS: InsuLIN REG 1unit/0.01ml Soln (100units/ml) SC SCH ×7 (00:26→23:27)
[2020-02-22] MEDS: AMIODARONE 450mg/250ml AE 250 ML IV SCH (01:58)
[2020-02-22] MEDS: MIDAZOLAM DRIP 50 mg/50mL 50 ML IV SCH (03:11)
[2020-02-22] MEDS: PHENYLEPHRINE IV 250 ML IV SCH ×2 (03:40→12:00)
[2020-02-22] MEDS: ACCU-CHEK COMFORT CURVE STRIP VI SCH ×6 (04:00→20:00)
--- NOTE | 2020-02-22 04:00 | NUR ---
GERMAN BATH. WOUND ON LEFT LOWER LEG. REMOVED THE HONEY STRIP. CLEANED SITE WITH CHLOROPREP AND REDRESSED WITH A FOAM DRESSING. HONEY WAS NOT AVAILABLE AT THIS MOMENT.
[2020-02-22 04:54] LABS: Calcium 8.3 mg/dL (8.5-10.1); Potassium 3.8 mmol/L (3.5-5.1)
[2020-02-22 04:57] LABS: BUN/Creatinine Ratio 24.1
[2020-02-22] MEDS: NOREPINEPHRINE 8 MG/250ML KIT 250 ML IV SCH (05:00)
--- NOTE | 2020-02-22 05:00 | NUR ---
THE STRESS OF TURNING BROUGHT THE HEART RATE UP TO 146. MY EXPERIENCE WITH HIM IS THAT IF I CAN GET HIM TO COUGH, IT WILL BRING DOWN THE HEART RATE, NOT CONVERT THE RHYTHM TO SINUS RHYTHM. AFTER SUCTIONING HIM 4 X , HE FINALLY CONVERTED THE RATE DOWN TO 75 AND IS NOW BACK IN A 3:1 FLUTTER.
[2020-02-22] MEDS: INSULIN LANTUS (GLARGINE) 1 /0.01ml (100units/ml) SC SCH (06:00)
--- NOTE | 2020-02-22 06:00 | NUR ---
UOP 3302
[2020-02-22] MEDS: BUMETANIDE 2.5mg/10ml (0.25 mg/ml) INJ IV SCH ×2 (06:27→17:13)
[2020-02-22] MEDS ORDERED: LACTATED RINGER'S 1,000 ML IV SCH (06:45)
--- NOTE | 2020-02-22 09:30 | NUR ---
PATIENT CARDIOVERTED AT 200 JOELES AND PATIENT CONVERTED TO SR FROM SVT OF 147. PATIENT TOLERATED WELL BY DR PECK AT THE BEDSIDE.
[2020-02-22] MEDS ORDERED: methylPREDNISolone SOD SUCC 125 MG/2 ML VL ONE (09:53)
[2020-02-22] MEDS: ENOXAPARIN SOD 150 MG/1 ML SYRINGE SC SCH (10:00)
[2020-02-22] MEDS: MEROPENEM 500MG IVPB 50 ML IV SCH ×2 (10:01→22:00)
[2020-02-22] MEDS ORDERED: AMIODARONE HCL 200 MG TAB PO ONE (10:15)
[2020-02-22] MEDS: HYDROCORTISONE SOD SUCC 100 MG/2ML INJ VIAL IV SCH ×2 (10:26→22:00)
[2020-02-22] MEDS: SODIUM CHLOR 0.9% PF (SALINE LOCK) 10ML VIAL/SYR IV SCH ×2 (10:26→22:00)
--- NOTE | 2020-02-22 11:19 | NUR ---
Nutrition Followup Note Wt 148.8KG Pt intubated sedated with no family by bedside. pt is currently NPO with no new diet order per RN. pt had HD 02/19 Est energy needs 6633-3779 kcal (11-14 kcal/kg BW 151kg) Est protein needs 91-113g (1.2-1.5g/kg IBW r/t pt is on HD) Will monitor and reassess prn. Labs: GLU 244 H BUN 24 H CREAT 2.66 H CA 8.3 L BM: Pt has no BM reported gastric drainage 160 ml per RN note Skin: BS 16 mod risk, full details in health care assistant note PES: Altered nutrition related labs aeb pt with elevated RFTs, hyponatremia, hyperkalemia, hyperglycemia r/t current and chronic medical conditions Inadequate oral intake aeb pt with NPO diet order rt current medical condition Comments Will continue to monitor NPO status, skin status, pertinent labs and weight trends. Will f/u in 2-3 days Rec: 1) Consider starting pt on alternate nutrition if pt NPO >48 hours 2) Consider Nepro CS 1.8 at 45 ml/hr if pt remains on HD 3) Advance diet as medically feasible
--- NOTE | 2020-02-22 11:24 | NUR ---
PATIENT AMIODARONE DRIP DISCONTINUED AFTER GIVING 400 MG OF AMIODARONE PO. PATIENT ON AMIODARONE 400 MG BID.
[2020-02-22 11:38] LABS: Hepatitis A Ab IgM Negative; Hepatitis B Core IgM Negative
[2020-02-22 11:39] LABS: Hepatitis B Surface Antigen Negative (Negative)
[2020-02-22 11:40] LABS: Hepatitis C Antibody Positive (Negative)
[2020-02-22] MEDS: LINEZOLID 600MG/300ML 300 ML IV SCH ×2 (12:00)
--- NOTE | 2020-02-22 14:27 | NUR ---
assessment Patient is a 65 year old male who is in ICU on a vent. Per patients sister Liliana prior to admission patient lived home alone in [place] and was independent. Per Liliana patient was just released from another hospital after being diagnosed with colon cancer and had 1 foot removed. Per Liliana she was not able to get a hold of patient so she called one of his friends and he went to check on patient. Patients friend found patient sitting in his truck not acting like himself. Patients friend brought patient home with him here in the [facility] and when patient had more shortness of breath he called 911. Patient had no need for DME prior to admission. I informed Liliana that patients post discharge needs to be determined after extubation and prior to discharge. I informed Liliana I will continue to monitor and follow up as appropriate for any post discharge needs. Liliana verbalized understanding. Addendum: 02/22/20 at 1433 by Callie HERNANDEZ Amended: Links added.
[2020-02-22] MEDS ORDERED: FUROSEMIDE 40 MG/4 ML VIAL IV ONE (17:00)
--- NOTE | 2020-02-22 18:00 | NUR ---
PATIENT HAD 1 SMALL BM MORE MOBILE WITH THE BOTH HANDS. MITTENS APPLIED.
--- NOTE | 2020-02-22 19:50 | NUR ---
PATIENT UNCOMFORTABLE, MOVING ARMS UNSAFELY TOWARDS THE ETT, FOAMING AT THE MOUTH AND THROUGH THE ETT. SUCTIONED COPIOUS AMOUNTS OF FOAMY WHITE SECRETIONS. RT AWARE. HAD TO CLEAN OUT THE TUBING. AWAKE AND ANXIOUS. FENTANYL ORDER CURRENT. STARTED FENTANYL. WITHIN AN HOUR THE PATIENT CALMED DOWN.
--- NOTE | 2020-02-22 20:22 | NUR ---
ADMITTED ON 02/12/2020. INITALLY, ALOC, FEVER, ELEVATED GLUCOSE. MD DIAGNOSIS: RESPIRATORY FAILURE, RENAL FAILURE, SEPSIS. CHADWICK, HIS SISTER IS HERE FROM [place] TO VISIT. RECENT DISCHARGE FROM [facility] . THERE HE HAD COLON SURGERY. MIDLINE INCISION AND 4 PUNCTURE WOUNDS FROM THE LAPARASCOPIC PART OF THE PROCEDURE. ALL ARE CLOSED, DRY AND OPEN TO AIR. NO COUGH, BLINK, GAG REFLEX. PUPILS 3 AND BRISK. ORAL CAVITY: SUCTIONED A MODERATE AMOUNT OF WHITE SECRETIONS. ORAL CARE PERFORMED. ORALLY INTUBATED. ETT TO VENTILATOR. ON PRESSURE CONTROL VENTILATION. PEEP IS 7, FIO2 35%. PRESSURING THE VENTILATOR. FENTANYL INCREASED TODAY, HE IS WAKING UP. LUNGS CLEAR. SMALL AMOUNT OF WHITE SECRETIONS SUCTIONED FROM THE ETT. RIGHT NARE NGT WITH NEPRO AT 10CC/HR. RESIDUAL 40CC OF DARK GREEN LIQUID FLUSHED NGT WITH 30CC OF WATER. ABDOMEN IS LARGE, ROUND AND SOFT. NO BOWEL SOUNDS. TAO IN PLACE DRAINING A LARGE AMOUNT OF YELLOW LIQUID TO DOWN DRAIN BAG. PITTING EDEMA IN ARMS AND LEGS. SCDS ON. DIALYSIS CATHETER PATENT RIJ. DIALYSIS HELD TODAY FOR GOOD URINE OUTPUT. ON A SODIUM BICARB DRIP AT A DECREASED RATE TODAY. CURRENT BICARB LEVEL IS 26.9. SBP SUPPORTED WITH LEVOPHED. HEART RHYTHM: NSR .PLACED ON AMIODARONE THIS AM AT [address]/AFIB. NO ECTOPY SEEN AT THIS MOMENT.ALL PULSES PALPABLE AND WEAK. ALL EXTREMITIES WARM.
[2020-02-22] MEDS: VASOPRESSIN 50 UNITS in D5W 5% 247.5 ML IV SCH (20:45)
[2020-02-22] MEDS: fentaNYL Drip 2500mCg/250mlNS 250 ML IV SCH (22:00)
[2020-02-22] MEDS: AMIODARONE HCL 200 MG TAB PO SCH (22:00)
--- NOTE | 2020-02-22 22:00 | NUR ---
REPOSITIONED PATIENT USING THE BED MECHANISM. CONTINUING TO SUCTION A MODERATE AMOUNT OF WHITE FOAMY, CREAMY SECRETIONS. ORAL CARE DONE. GOOD URINE OUTPUT. NSR WITHOUT ECTOPY. ABDOMEN ROUND, LARGE AND FIRM. NGT RESIDUAL 2CC. (CREAMY).
--- NOTE | 2020-02-22 23:00 | NUR ---
SBP DROP INTO THE 80S. GOT A NEW LEVOPHED SETUP AND THEN THE BP IMPROVED.
[2020-02-23] VITALS (93 sets, daily range): BP systolic 72–181; BP diastolic 35–92
--- NOTE | 2020-02-23 | NUR ---
NGT RESIDUAL 2 CC. OCCASIONALLY WAKES UP AND MOVES ARMS. NSR WITHOUT ECTOPY. IV SHOWS NO REDNESS OR SWELLING.
--- NOTE | 2020-02-23 02:00 | NUR ---
RT CHANGED THE ETT STABILIZATION DEVICE AROUND MIDNIGHT. LESS ORAL SECRETIONS. SUCTIONED A MODERATE AMOUNT OF WHITE SECRETIONS FROM THE ETT. USED THE BED TO TURN THE PATIENT TO HIS RIGHT. NGT RESIDUAL 2CC. NSR WITHOUT ECTOPY. IV SHOWS NO REDNESS OR SWELLING.
--- NOTE | 2020-02-23 03:00 | NUR ---
PATIENT WOKE UP AND STARTED REACHING FOR HIS ETT. BANGING ON RAILS WITH EYES WIDE OPEN. VERSED DRIP STARTED. BILATERAL MITTENS ON.
--- NOTE | 2020-02-23 03:15 | NUR ---
AM LABS DONE.
[2020-02-23 03:56] LABS: Basophils # (auto) 0 10 ^3/uL (0-0.2); Basophils % (auto) 0.2 % (0.0-2.0); Eosinophils # (auto) 0 10 ^3/uL (0-0.8); Hematocrit 32.3 % (41.0-53.0); Hemoglobin 10.6 g/dL (13.5-17.5); Lymphocytes % (auto) 7.4 % (10.0-50.0); Mean Corpuscular Hemoglobin 29.8 pg (28.0-32.0); Mean Corpuscular Hgb Conc. 32.7 g/dL (32.0-36.0); Mean Corpuscular Volume 91.2 fL (80.0-100.0); Monocytes # (auto) 0.7 10 ^3/uL (0-1.3); Monocytes % (auto) 5.1 % (0.0-12.0); Neutrophils % (auto) 87.3 % (37.0-80.0); Nucleated Red Blood Cells % 0.2 %; Platelet Count (auto) 179 10^3/uL (140-450); Red Blood Cells 3.55 10^6/uL (4.5-5.90); Red Cell Distribution Width 14.7 % (11.8-14.3); White Blood Cell 13.7 10^3/uL (4.4-10.8)
[2020-02-23] MEDS: ACCU-CHEK COMFORT CURVE STRIP VI SCH ×6 (04:00→20:00)
--- NOTE | 2020-02-23 04:00 | NUR ---
VSS . [place] DRIP HELPING. FIO2 INCREASED TO 60%. O2 SAT WAS 90. PATIENT WAKES UP, OPENS EYES, LIFTS ARMS OFF BED A LITTLE WHEN STIMULATED. BETTER THAN BEFORE WHERE HE WAS PULLING AND TRYING TO HIT THE SIDERAILS.
[2020-02-23 04:12] LABS: Calcium 8.5 mg/dL (8.5-10.1); Potassium 4.3 mmol/L (3.5-5.1)
[2020-02-23 04:14] LABS: BUN/Creatinine Ratio 29.1
[2020-02-23] MEDS: InsuLIN REG 1unit/0.01ml Soln (100units/ml) SC SCH ×5 (04:31→20:25)
[2020-02-23] MEDS: NOREPINEPHRINE 8 MG/250ML KIT 250 ML IV SCH (05:00)
[2020-02-23] MEDS: INSULIN LANTUS (GLARGINE) 1 /0.01ml (100units/ml) SC SCH (05:34)
[2020-02-23] MEDS: BUMETANIDE 2.5mg/10ml (0.25 mg/ml) INJ IV SCH ×2 (05:34→17:34)
--- NOTE | 2020-02-23 06:00 | NUR ---
VSS. SB/NSR . FOLLOWING VENTILATOR RATE UNTIL YOU WORK WITH HIM. THEN HE WAKES UP, HR AND BP GO UP, HE BRINGS HIS ARMS UP.
[2020-02-23] MEDS: MEROPENEM 500MG IVPB 50 ML IV SCH ×2 (09:50→22:08)
[2020-02-23] MEDS: HYDROCORTISONE SOD SUCC 100 MG/2ML INJ VIAL IV SCH ×2 (09:51→22:08)
[2020-02-23] MEDS: ENOXAPARIN SOD 150 MG/1 ML SYRINGE SC SCH (09:51)
[2020-02-23] MEDS: AMIODARONE HCL 200 MG TAB PO SCH ×2 (09:52→22:00)
[2020-02-23] MEDS: SODIUM CHLOR 0.9% PF (SALINE LOCK) 10ML VIAL/SYR IV SCH ×2 (10:00→22:00)
[2020-02-23] MEDS ORDERED: FUROSEMIDE 40 MG/4 ML VIAL IV SCH (10:00)
--- NOTE | 2020-02-23 10:54 | NUR ---
PER BATCH UNLOADER NO REPEAT ABG NEEDED AFTER VENT CHANGES.
[2020-02-23] MEDS: LINEZOLID 600MG/300ML 300 ML IV SCH ×2 (12:29)
[2020-02-23] MEDS: fentaNYL Drip 2500mCg/250mlNS 250 ML IV SCH (12:30)
[2020-02-23] MEDS: MIDAZOLAM DRIP 50 mg/50mL 50 ML IV SCH ×3 (12:34→20:00)
[2020-02-23] MEDS: SODIUM CHLORIDE 0.9% 1,000 ML IV SCH (15:45)
--- NOTE | 2020-02-23 19:58 | NUR ---
ADMITTED ON 02/12/2020. INITALLY, ALOC, FEVER, ELEVATED GLUCOSE. MD DIAGNOSIS: RESPIRATORY FAILURE, RENAL FAILURE, SEPSIS. CHADWICK, HIS SISTER IS HERE FROM [place] TO VISIT. RECENT DISCHARGE FROM [facility] . THERE HE HAD COLON SURGERY. MIDLINE INCISION AND 4 PUNCTURE WOUNDS FROM THE LAPARASCOPIC PART OF THE PROCEDURE. ALL ARE CLOSED, DRY AND OPEN TO AIR. NO COUGH, BLINK, GAG REFLEX. PUPILS 3 AND BRISK. ORAL CAVITY: SUCTIONED A MODERATE AMOUNT OF WHITE SECRETIONS. ORAL CARE PERFORMED. ORALLY INTUBATED. ETT TO VENTILATOR. ON PRESSURE CONTROL VENTILATION. PEEP IS 7, FIO2 35%. PRESSURING THE VENTILATOR. FENTANYL INCREASED TODAY, HE IS WAKING UP. LUNGS CLEAR. SMALL AMOUNT OF WHITE SECRETIONS SUCTIONED FROM THE ETT. RIGHT NARE NGT WITH NEPRO AT 20CC/HR. FLUSHED NGT WITH 30CC OF WATER. ABDOMEN IS LARGE, ROUND AND SOFT. NO BOWEL SOUNDS. TAO IN PLACE DRAINING A LARGE AMOUNT OF YELLOW LIQUID TO DOWN DRAIN BAG. PITTING EDEMA IN ARMS AND LEGS. SCDS ON. DIALYSIS CATHETER PATENT RIJ. NOW ADDED IV FLUID AT 75CC/HR. SBP SUPPORTED WITH LEVOPHED. HEART RHYTHM: NSR /SB. TAKEN OFF OF AMIODARONE DRIP AND PLACED ON NGT DOSE OF AMIODORONE. NO ECTOPY SEEN AT THIS MOMENT.ALL PULSES PALPABLE AND WEAK. ALL EXTREMITIES WARM.
[2020-02-23] MEDS: Nepro With Carb Steady 1 Liter Bottle GT SCH (20:00)
[2020-02-23] MEDS: VASOPRESSIN 50 UNITS in D5W 5% 247.5 ML IV SCH (20:45)
--- NOTE | 2020-02-23 22:00 | NUR ---
ROTATING BED. VSS. SINUS BRADYCARDIA WITH A BBB. SWELLING IN ARMS AND LEGS. SUCTIONED ETT FOR A SMALL AMOUNT OF WHITE SECRETIONS. ALL PULSES PALPABLE. SINUS BRADYCARDIA. LEVOPHED BEING TITRATED DOWN.
[2020-02-24] VITALS (95 sets, daily range): BP systolic 89–148; BP diastolic 51–67
--- NOTE | 2020-02-24 | NUR ---
HUNG NEW DRIPS AND TUBINGS. NGOZI BINGHAM DRESSING CHANGE.REPOSITIONED PATIENT. ORAL CARE DONE AND ETT SINUS BRADYCARDIA
[2020-02-24] MEDS: ACCU-CHEK COMFORT CURVE STRIP VI SCH ×6 (00:10→20:00)
[2020-02-24] MEDS: InsuLIN REG 1unit/0.01ml Soln (100units/ml) SC SCH ×6 (00:10→19:53)
[2020-02-24] MEDS: LINEZOLID 600MG/300ML 300 ML IV SCH ×2 (00:14→12:00)
[2020-02-24] MEDS: AMIODARONE HCL 200 MG TAB PO SCH ×2 (02:00→10:00)
[2020-02-24] MEDS: SODIUM CHLORIDE 0.9% 1,000 ML IV SCH ×2 (03:00→05:05)
[2020-02-24] MEDS: NOREPINEPHRINE 8 MG/250ML KIT 250 ML IV SCH (03:00)
--- NOTE | 2020-02-24 03:00 | NUR ---
AM LABS DRAWN.
[2020-02-24 04:36] LABS: Basophils # (auto) 0 10 ^3/uL (0-0.2); Basophils % (auto) 0.1 % (0.0-2.0); Eosinophils # (auto) 0 10 ^3/uL (0-0.8); Hematocrit 31.2 % (41.0-53.0); Hemoglobin 10.1 g/dL (13.5-17.5); Lymphocytes # (auto) 1.2 10 ^3/uL (0.4-5.4); Lymphocytes % (auto) 7.9 % (10.0-50.0); Mean Corpuscular Hemoglobin 29.8 pg (28.0-32.0); Mean Corpuscular Hgb Conc. 32.4 g/dL (32.0-36.0); Monocytes # (auto) 1.1 10 ^3/uL (0-1.3); Monocytes % (auto) 7.2 % (0.0-12.0); Neutrophils # (auto) 12.4 10 ^3/uL (1.6-8.6); Neutrophils % (auto) 84.8 % (37.0-80.0); Nucleated Red Blood Cells % 0.2 %; Platelet Count (auto) 193 10^3/uL (140-450); Red Blood Cells 3.39 10^6/uL (4.5-5.90); Red Cell Distribution Width 14.7 % (11.8-14.3); White Blood Cell 14.6 10^3/uL (4.4-10.8)
[2020-02-24 04:53] LABS: Albumin 1.7 g/dL (3.4-5.0); Calcium 8.4 mg/dL (8.5-10.1); Potassium 3.7 mmol/L (3.5-5.1)
[2020-02-24 04:58] LABS: BUN/Creatinine Ratio 35.7; Bilirubin, Total 0.4 mg/dL (0.2-1.0); Total Protein 5.6 g/dL (6.4-8.2)
--- NOTE | 2020-02-24 06:00 | NUR ---
COMPLETE LINEN CHANGE
--- NOTE | 2020-02-24 06:10 | NUR ---
INCONTINENT OF BROWN PASTY STOOL
[2020-02-24] MEDS: INSULIN LANTUS (GLARGINE) 1 /0.01ml (100units/ml) SC SCH (07:00)
[2020-02-24] MEDS: MIDAZOLAM DRIP 50 mg/50mL 50 ML IV SCH ×2 (08:06)
--- NOTE | 2020-02-24 09:00 | NUR ---
DR Jairo LIGHT CAME AND SAW THE PATIENT NOTIFIED OF THE HIGH RESIDUAL SAID TO CONTINUE FEEDING OF 15 CC/HR.
[2020-02-24] MEDS: BUMETANIDE 2.5mg/10ml (0.25 mg/ml) INJ IV SCH (10:27)
[2020-02-24] MEDS: MEROPENEM 500MG IVPB 50 ML IV SCH ×2 (10:27→22:00)
[2020-02-24] MEDS: HYDROCORTISONE SOD SUCC 100 MG/2ML INJ VIAL IV SCH (10:28)
[2020-02-24] MEDS: SODIUM CHLOR 0.9% PF (SALINE LOCK) 10ML VIAL/SYR IV SCH ×2 (10:28→22:00)
[2020-02-24] MEDS: ENOXAPARIN SOD 150 MG/1 ML SYRINGE SC SCH (10:29)
--- NOTE | 2020-02-24 12:05 | NUR ---
Respiratory note: INCREASED FIO2 TO 75%.
[2020-02-24] MEDS: fentaNYL Drip 2500mCg/250mlNS 250 ML IV SCH ×2 (13:34)
--- NOTE | 2020-02-24 14:43 | NUR ---
Nutrition Followup Note Wt 145.0 kg Pt intubated sedated with no family by bedside. pt is currently NPO with Nepro CS 1.8 at 10ml/hr. Nepro CS 1.8 was hanging and running at 15 ml/hr at time of rounds. Pt last HD was 02/19. Spoke to RN and MD, pt was only to receive HD one time. Consider TF change to Glucerna 1.2 at a goal rate of 65ml/hr Est energy needs 4853-2175 kcal (11-14 kcal/kg BW 151kg) Est protein needs 75-91g (1-1.2/kg IBW) Will monitor and reassess prn. Labs: GLU 238H, BUN 79H, Creat 2.21H, Alb 1.7L, Ca 8.4L BM: Pt with 2 BMs 02/23 per Rn note Skin: BS 18 mod risk, full details in career based intervention coordinator note PES: Altered nutrition related labs aeb pt with elevated RFTs, hyponatremia, hyperkalemia, hyperglycemia r/t current and chronic medical conditions Inadequate oral intake aeb pt with NPO diet order rt current medical condition Comments Will continue to monitor NPO status, skin status, pertinent labs and weight trends. Will f/u in 2-3 days Rec: 1) Consider Glucerna 1.2 at a goal rate of 65ml/hr 2) Advance diet as medically feasible 3) Continue current plan of care
--- NOTE | 2020-02-24 19:25 | NUR ---
ADMITTED ON 02/12/2020. INITALLY, ALOC, FEVER, ELEVATED GLUCOSE. MD DIAGNOSIS: RESPIRATORY FAILURE, RENAL FAILURE, SEPSIS. CHADWICK, HIS SISTER IS HERE FROM [place] TO VISIT. RECENT DISCHARGE FROM [facility] . THERE HE HAD COLON SURGERY. MIDLINE INCISION AND 4 PUNCTURE WOUNDS FROM THE LAPARASCOPIC PART OF THE PROCEDURE. ALL ARE CLOSED, DRY AND OPEN TO AIR. NO COUGH, BLINK, GAG REFLEX. PUPILS 2 AND sluggish. ORAL CAVITY: SUCTIONED A MODERATE AMOUNT OF WHITE SECRETIONS. ORAL CARE PERFORMED. ORALLY INTUBATED. ETT TO VENTILATOR. ON PRESSURE CONTROL VENTILATION. PEEP IS 7, FIO2 35%. PRESSURING THE VENTILATOR. FENTANYL DECREASED TODAY, HE IS WAKING UP A LITTLE. LUNGS CLEAR. SMALL AMOUNT OF WHITE SECRETIONS SUCTIONED FROM THE ETT. RIGHT NARE NGT WITH NEPRO AT 15CC/HR. FLUSHED NGT WITH 30CC OF WATER. ABDOMEN IS LARGE, ROUND AND SOFT. NO BOWEL SOUNDS. TAO IN PLACE DRAINING A LARGE AMOUNT OF HAZY YELLOW LIQUID TO DOWN DRAIN BAG. PITTING EDEMA IN ARMS AND LEGS. SCDS ON. DIALYSIS CATHETER PATENT RIJ. IV FLUID AT 75CC/HR. SBP SUPPORTED WITH LEVOPHED. HEART RHYTHM: NSR /SB. TAKEN OFF OF AMIODARONE DRIP AND PLACED ON NGT DOSE OF AMIODARONE.LAST FEW SHIFTS HAVE BEEN HOLDING THE AMIODARONE DUE TO BRADYCARDIA. NO ECTOPY SEEN AT THIS MOMENT.ALL PULSES PALPABLE AND WEAK. ALL EXTREMITIES WARM. Addendum: 02/24/20 at 1929 by THERON DEVLIN RN PEEP IS 10, FO2 75% PRESSURE IS 22 AND RATE IS 14. FOLLOWING VENTILATOR
--- NOTE | 2020-02-24 20:00 | NUR ---
CHANGED SOME IV TUBINGS. SUCTIONED ORALLY FOR WHITE CREAMY SECRETIONS. SUCTIONED THE ETT FOR MINIMAL WHITE SECRETIONS. LUNGS CLEAR. TUBE FEEDING OFF FOR 80CC RESIDUAL. MARIELY. TAO DRAINING ADEQUATE AMOUNTS OF LIGHT PERFECTO LIQUID. ALL PULSES WEAK AND PALPABLE. BLANKET PLACED ON PATIENT. RECTAL TEMP PROBE IS NOT THE SAME THE ORAL TEMPERATURE.
[2020-02-24] MEDS: VASOPRESSIN 50 UNITS in D5W 5% 247.5 ML IV SCH (20:45)
--- NOTE | 2020-02-24 22:00 | NUR ---
VSS. INCREASING SEDATION BECAUSE HE IS STACKING SOME BREATHS. NSR WITHOUT ECTOPY. SUCTIONED THE ETT FOR A MODERATE AMOUNT OF WHITE SECRETIONS. FIO2 DECREASED TO 70%. ORAL CARE DONE. OTILIA RIGHT IJ HAS A CLEAR DRESSING WITH BIOPATCH.
[2020-02-25] VITALS (57 sets, daily range): BP systolic 87–148; BP diastolic 39–86
--- NOTE | 2020-02-25 | NUR ---
BED TURNED THE PATIENT TO HIS LEFT. SINUS LOGAN 55. THE INCREASE IN FENTANYL AND VERSED BROUGHT THE DOUBLE STACKING OF BREATHS TO A HALT. HE CAN STILL OPEN HIS EYES AND MOVE HIS ARMS WHEN I WORK WITH HIM. LUNGS CLEAR. MODERATE AMOUNT OF WHITE SECRETIONS SUCTIONED FROM THE ETT. NGT RESIDUAL 40CC OF GREEN. RESTARTED THE TUBE FEEDING AT 10CC/HR.
--- NOTE | 2020-02-25 02:00 | NUR ---
VSS. SINUS BRADYCARDIA. ORAL CARE DONE, WHITE SECRETIONS. ETT SUCTIONED. IV SITE SHOWS NO REDNESS OR SWELLING
[2020-02-25] MEDS: Nepro With Carb Steady 1 Liter Bottle GT SCH (03:00)
[2020-02-25] MEDS: SODIUM CHLORIDE 0.9% 1,000 ML IV SCH ×2 (03:00→21:05)
[2020-02-25] MEDS: fentaNYL Drip 2500mCg/250mlNS 250 ML IV SCH (03:00)
[2020-02-25] MEDS: ACCU-CHEK COMFORT CURVE STRIP VI SCH ×6 (04:10→20:00)
[2020-02-25] MEDS: InsuLIN REG 1unit/0.01ml Soln (100units/ml) SC SCH ×6 (04:24→20:00)
[2020-02-25 05:41] LABS: Basophils # (auto) 0 10 ^3/uL (0-0.2); Basophils % (auto) 0.1 % (0.0-2.0); Eosinophils # (auto) 0 10 ^3/uL (0-0.8); Eosinophils % (auto) 0.2 % (0.0-7.0); Hematocrit 33.2 % (41.0-53.0); Hemoglobin 10.9 g/dL (13.5-17.5); Lymphocytes # (auto) 2.1 10 ^3/uL (0.4-5.4); Lymphocytes % (auto) 14.2 % (10.0-50.0); Mean Corpuscular Hemoglobin 30.1 pg (28.0-32.0); Mean Corpuscular Hgb Conc. 32.7 g/dL (32.0-36.0); Mean Corpuscular Volume 92.1 fL (80.0-100.0); Monocytes # (auto) 1.4 10 ^3/uL (0-1.3); Monocytes % (auto) 9.7 % (0.0-12.0); Neutrophils # (auto) 11.2 10 ^3/uL (1.6-8.6); Neutrophils % (auto) 75.8 % (37.0-80.0); Nucleated Red Blood Cells % 0.3 %; Platelet Count (auto) 183 10^3/uL (140-450); Red Cell Distribution Width 14.8 % (11.8-14.3); White Blood Cell 14.8 10^3/uL (4.4-10.8)
[2020-02-25 05:51] LABS: Calcium 8.3 mg/dL (8.5-10.1); Potassium 3.4 mmol/L (3.5-5.1)
[2020-02-25 05:54] LABS: BUN/Creatinine Ratio 34.5
[2020-02-25] MEDS: INSULIN LANTUS (GLARGINE) 1 /0.01ml (100units/ml) SC SCH (06:43)
--- NOTE | 2020-02-25 07:17 | NUR ---
REPORT RECEIVED FROM MANAGER CONSTRUCTION RN
[2020-02-25] MEDS: MIDAZOLAM DRIP 50 mg/50mL 50 ML IV SCH ×2 (07:52)
[2020-02-25] MEDS: BUMETANIDE 2.5mg/10ml (0.25 mg/ml) INJ IV SCH (09:31)
[2020-02-25] MEDS: MEROPENEM 500MG IVPB 50 ML IV SCH ×2 (09:31→22:00)
[2020-02-25] MEDS: SODIUM CHLOR 0.9% PF (SALINE LOCK) 10ML VIAL/SYR IV SCH ×2 (09:32→22:00)
[2020-02-25] MEDS: ENOXAPARIN SOD 150 MG/1 ML SYRINGE SC SCH (09:32)
[2020-02-25] MEDS: HYDROCORTISONE SOD SUCC 100 MG/2ML INJ VIAL IV SCH (09:32)
[2020-02-25] MEDS: AMIODARONE HCL 200 MG TAB PO SCH ×2 (09:32→22:00)
[2020-02-25] MEDS ORDERED: POTASSIUM CHLORIDE 20 MEQ, LIDOCAINE 1% (LOCAL ANESTH.) 2 ML in SODIUM CHL 0.9% 100 ML IV ONE (10:15)
--- NOTE | 2020-02-25 10:27 | NUR ---
FAMILY SPOKE WITH SISTER CHADWICK FORREST IN GREAT DETAIL REGARDING PATIENT STATUS. PER CHADWICK SHE HAS GIVEN PATIENT SUFFICIENT AMOUNT OF TIME AND STATES PATIENT WOULD NOT LIKE TO LIVE ON A VENTILATOR. PER CHADWICK SHE WOULD LIKE TO TERMINALL WEEN PATIENT AND KEEP HIM COMFORT MEASURES ONLY AND THAT THERE IS NO OTHER FAMILY. CHADWICK STATES SHE DOES NOT WANT TO BE PRESENT AT TIME OF EXTUBATION. CODE STATUS CONFIRMED WITH CHARGE NURSE ALBA
--- NOTE | 2020-02-25 10:27 | NUR ---
MEDICATIONS SISTER WOULD ONLY LIKE COMFORT MEASURES IV MEDICATION AT THIS TIME
--- NOTE | 2020-02-25 10:29 | NUR ---
DR. SINGH AT BEDSIDE
[2020-02-25] MEDS ORDERED: ONDANSETRON HCL 4 MG/2 ML VIAL IV PRN (10:30)
[2020-02-25] MEDS: MORPHINE SULF INJ 2 MG/ML SYRINGE 1ML IV PRN ×2 (10:33→17:57)
--- NOTE | 2020-02-25 10:39 | NUR ---
PATIENT EXTUBATED PRE MEDICATED WITH MORPHINE FOR COMFORT
[2020-02-25] MEDS: LORazepam 2MG/ML-1ML VIAL IV PRN (11:38)
[2020-02-25] MEDS: LINEZOLID 600MG/300ML 300 ML IV SCH ×2 (11:53)
--- NOTE | 2020-02-25 14:28 | NUR ---
FAMILY SISTER UPDATED ON PATIENT STATUS. ALL QUESTIONS AND CONCERNS ADDRESSED AT THIS TIME
[2020-02-25] MEDS: PHENYLEPHRINE IV 250 ML IV SCH ×2 (15:00→23:20)
--- NOTE | 2020-02-25 16:17 | NUR ---
TEMPERATURE 100.0 COOLING MEASURES APPLIED FOR COMFORT
--- NOTE | 2020-02-25 18:16 | NUR ---
DR. RIVAS AT BEDSIDE
--- NOTE | 2020-02-25 20:00 | NUR ---
RECIEVED PT ON 2L NC, SAO2 RANGING FROM 87-91%, RESP NOT LABORED, PT MOANING OCCASIONALLY, MOVING UPPER EXT BUT WEAK, PT NOT FOLLOWING ANY COMMANDS, EYES ARE CLOSED, SEE INTERVENTIONS FOR HEAD TO TOE ASSESSMENT, PT PREPARED FOR TRANSFER TO SAME DAY SURGERY CENTER FLOOR
[2020-02-25] MEDS: VASOPRESSIN 50 UNITS in D5W 5% 247.5 ML IV SCH (20:45)
--- NOTE | 2020-02-25 21:00 | NUR ---
REPORT GIVEN TO PEGGY DORAN
--- NOTE | 2020-02-25 21:30 | NUR ---
PT TRANSFERED TO A MED SURG BED 4 PERSON ASST, THEN TRANSFERED TO MED SURG RM#204 VIA BED WITH O2 2L, TOLERATED MOVEMENT WITHOUT INCIDENT
--- NOTE | 2020-02-25 21:32 | NUR ---
assumed care of pt at this time,pt is making sounds but unable to understand what he is saying, pt is also shaking and icu nurse says that is his baseline. pt is clean and dry no other s/s.
[2020-02-25] MEDS: NOREPINEPHRINE 8 MG/250ML KIT 250 ML IV SCH (23:30)
[2020-02-26] MEDS: MORPHINE SULF INJ 2 MG/ML SYRINGE 1ML IV PRN ×3 (02:16→18:45)
[2020-02-26] MEDS: LORazepam 2MG/ML-1ML VIAL IV PRN ×3 (03:45→21:25)
[2020-02-26] MEDS: InsuLIN REG 1unit/0.01ml Soln (100units/ml) SC SCH ×6 (04:00→20:45)
[2020-02-26] MEDS: ACCU-CHEK COMFORT CURVE STRIP VI SCH ×7 (04:00→23:54)
[2020-02-26 05:00] VITALS: BP 152/82
[2020-02-26 06:30] LABS: Basophils # (auto) 0 10 ^3/uL (0-0.2); Eosinophils # (auto) 0.1 10 ^3/uL (0-0.8); Eosinophils % (auto) 0.6 % (0.0-7.0); Hematocrit 33.4 % (41.0-53.0); Hemoglobin 10.8 g/dL (13.5-17.5); Lymphocytes # (auto) 2.5 10 ^3/uL (0.4-5.4); Lymphocytes % (auto) 19.4 % (10.0-50.0); Mean Corpuscular Hgb Conc. 32.3 g/dL (32.0-36.0); Mean Corpuscular Volume 92.6 fL (80.0-100.0); Monocytes # (auto) 1.3 10 ^3/uL (0-1.3); Monocytes % (auto) 10.5 % (0.0-12.0); Neutrophils # (auto) 8.8 10 ^3/uL (1.6-8.6); Neutrophils % (auto) 69.5 % (37.0-80.0); Nucleated Red Blood Cells % 0.1 %; Platelet Count (auto) 152 10^3/uL (140-450); Red Blood Cells 3.61 10^6/uL (4.5-5.90); Red Cell Distribution Width 14.8 % (11.8-14.3); White Blood Cell 12.6 10^3/uL (4.4-10.8)
[2020-02-26 06:46] LABS: Potassium 3.1 mmol/L (3.5-5.1)
[2020-02-26] MEDS: INSULIN LANTUS (GLARGINE) 1 /0.01ml (100units/ml) SC SCH (06:49)
[2020-02-26 07:18] LABS: Albumin 1.9 g/dL (3.4-5.0); Bilirubin, Total 0.8 mg/dL (0.2-1.0); Total Protein 5.9 g/dL (6.4-8.2)
[2020-02-26 07:26] LABS: Calcium 8.5 mg/dL (8.5-10.1)
[2020-02-26] MEDS: PHENYLEPHRINE IV 250 ML IV SCH (07:29)
--- NOTE | 2020-02-26 07:45 | NUR ---
Opening Shift Note Assumed care of patient, awake and alert. No S/S of distress/SOB or pain. Bed in lowest/locked position, bed rails up x2, call light within reach. Instructed on POC and to call for assist PRN. Will continue to monitor for changes Q1hr and PRN.
[2020-02-26 08:42] VITALS: BP 134/67
[2020-02-26] MEDS: AMIODARONE HCL 200 MG TAB PO SCH ×2 (10:00→21:39)
[2020-02-26] MEDS: BUMETANIDE 2.5mg/10ml (0.25 mg/ml) INJ IV SCH (10:34)
[2020-02-26] MEDS: ENOXAPARIN SOD 150 MG/1 ML SYRINGE SC SCH (10:35)
[2020-02-26] MEDS: SODIUM CHLOR 0.9% PF (SALINE LOCK) 10ML VIAL/SYR IV SCH ×2 (10:35→21:28)
[2020-02-26] MEDS: MEROPENEM 500MG IVPB 50 ML IV SCH ×2 (10:35→21:28)
[2020-02-26] MEDS: HYDROCORTISONE SOD SUCC 100 MG/2ML INJ VIAL IV SCH (10:35)
[2020-02-26] MEDS: LINEZOLID 600MG/300ML 300 ML IV SCH ×2 (11:52)
--- NOTE | 2020-02-26 12:24 | NUR ---
Nutrition Followup Note Wt 145.0 kg Pt extubated comfort measure only per RN with no family by bedside. pt is currently NPO with Nepro CS 1.8 at 10ml/hr. Pt last HD was 02/19. no more HD per records Est energy needs 8724-9838 kcal (11-14 kcal/kg BW 151kg) Est protein needs 75-91g (1-1.2/kg IBW) Will monitor and reassess prn. Labs: BUN 67 H CREAT 1.86 H GLU 155 H ALB 1.9 L CO2 38 H BM: Pt with 2 BMs 02/23 per Rn note Skin: BS 12 high risk, full details in pet care worker note PES: Altered nutrition related labs aeb pt with elevated RFTs, hyponatremia, hyperkalemia, hyperglycemia r/t current and chronic medical conditions Inadequate oral intake aeb pt with NPO diet order rt current medical condition Comments Will continue to monitor NPO status, EN tolerance, skin status, pertinent labs and weight trends. Will f/u in 2-3 days Rec: 1) Consider Glucerna 1.2 at a goal rate of 65ml/hr if pt off HD 2) Advance diet as medically feasible 3) Continue current plan of care
[2020-02-26 13:00] VITALS: BP 166/79
--- NOTE | 2020-02-26 14:30 | NUR ---
FAMILY SISTER UPDATED ON PATIENT STATUS. ALL QUESTIONS AND CONCERNS ADDRESSED AT THIS TIME
--- NOTE | 2020-02-26 15:10 | NUR ---
MD ROUNDS DR IYER AT BEDSIDE. NEW ORDERS RECEIVED/WILL CARRY OUT. WILL CONTINUE TO MONITOR
--- NOTE | 2020-02-26 15:10 | NUR ---
ACCU CHECKS/INSULIN PER DR IYER: HOLD INSULIN FOR ACCU CHECKS UNTIL SWALLOW EVAL RECOMMENDS DIET. WILL CONTINUE TO MONITOR
[2020-02-26 16:29] VITALS: BP 140/84
--- NOTE | 2020-02-26 17:44 | NUR ---
SWALLOW EVALUATED. PATIENT HAS NATURAL TEETH. ALOC BUT ABLE TO FOLLOW ONE STEP COMMANDS. PATIENT IS ABLE TO TOLERATE PUREE DIET TEXTURE WITH THIN LIQUIDS WITH NO OVERT SIGNS OR SYMPTOMS OF ASPIRATION. NURSING NOTIFIED.
--- NOTE | 2020-02-26 18:50 | NUR ---
FAMILY CALL RECEIVED CALL FROM SISTER CHADWICK, UPSET. PER CHADWICK: SHE WAS TOLD BY ICU: PATIENT WAS UNRESPONSIVE. CHADWICK WAS ABLE TO COMMUNICATE ON THE PHONE WITH PATIENT QUICKLY THIS EVENING WITH ASSISTANCE, WHICH SHE FEELS IS A CHANGE OF STATUS. CHADWICK REQUESTING TO SEE PATIENT, INFORMED CHADWICK OF VISITORS NOT BEING ALLOWED D/T TO COVID. ASKED CHADWICK "DID ICU GIVE HER THE OPTION TO SEE HER BROTHER BEFORE EXTUBATION?" PER CHADWICK, "YES, BUT I DIDN'T WANT TO BE AROUND COVID PATIENTS". EDUCATED CHADWICK THAT THERE IS NO GUARANTEE THAT COVID EXPOSURE WON'T HAPPEN BEING IN THE HOSPITAL, EXPLAINED RISKS VS BENEFITS. CHADWICK REQUESTING TO STILL VISIT PATIENT BECAUSE SHE LEAVES HOME TO [place] TOMORROW. EXPLAINED TO CHADWICK THAT I WOULD INFORM BRANCH MANAGER TRAINEE OF WISHES. WILL ENDORSE TO CYDNEY ALVARADO
--- NOTE | 2020-02-26 19:00 | NUR ---
Opening Shift Note Assumed care of patient. Patient is awake and responsive to name. Patient confused and constantly re-oriented. Per GAMEMASTER, patient was able to video chat with family. Family had phone brought up to unit, GAMEMASTER took phone back to family. No S/S of distress/SOB. Bed in lowest/locked position, bed rails up x2. Patient bed close to room. Will continue to monitor.
--- NOTE | 2020-02-26 19:10 | NUR ---
TOBACCO CLOTH RECLAIMER SPOKE WITH TOBACCO CLOTH RECLAIMER RE: PRIOR NOTE. PER TOBACCO CLOTH RECLAIMER: CHADWICK CAN SEE PATIENT FOR NO MORE THAN 30 MINUTES. ENDORSED TO TRAINER
[2020-02-26 22:00] VITALS: BP 157/83
[2020-02-27] MEDS: InsuLIN REG 1unit/0.01ml Soln (100units/ml) SC SCH ×3 (00:18→09:18)
[2020-02-27] MEDS: MORPHINE SULF INJ 2 MG/ML SYRINGE 1ML IV PRN ×3 (03:34→20:57)
[2020-02-27] MEDS: ACCU-CHEK COMFORT CURVE STRIP VI SCH ×5 (03:47→20:30)
[2020-02-27 05:00] VITALS: BP 150/76
[2020-02-27 06:37] LABS: BUN/Creatinine Ratio 27.6; Calcium 8.4 mg/dL (8.5-10.1)
[2020-02-27] MEDS: INSULIN LANTUS (GLARGINE) 1 /0.01ml (100units/ml) SC SCH (06:37)
[2020-02-27 06:39] LABS: Potassium 2.9 mmol/L (3.5-5.1)
--- NOTE | 2020-02-27 07:02 | NUR ---
Critical Lab Potassium 2.9 and Carbon dioxide 44. Patient is comfort measures only. Hospitalist paged at this time.
[2020-02-27 08:55] VITALS: BP 167/79
--- NOTE | 2020-02-27 08:55 | NUR ---
FAMILY SISTER UPDATED ON PATIENT STATUS. ALL QUESTIONS AND CONCERNS ADDRESSED AT THIS TIME
[2020-02-27] MEDS: LORazepam 2MG/ML-1ML VIAL IV PRN (09:17)
[2020-02-27] MEDS: SODIUM CHLOR 0.9% PF (SALINE LOCK) 10ML VIAL/SYR IV SCH ×2 (09:17→22:28)
[2020-02-27] MEDS: MEROPENEM 500MG IVPB 50 ML IV SCH (09:18)
[2020-02-27] MEDS ORDERED: POTASSIUM EFFERVESENT TAB 25 MEQ PO ONE (09:30)
[2020-02-27] MEDS ORDERED: LORazepam 2MG/ML-1ML VIAL IV PRN (09:45)
--- NOTE | 2020-02-27 11:10 | NUR ---
TRANSFER PATIENT TRANSFERRED TO ROOM 218B FOR SAFETY. ALL BELONGINGS TAKEN WITH PATIENT. NO S/S OF DISTRESS, SOB, PAIN NOTED AT TRANSFER. WILL CONTINUE TO MONITOR
[2020-02-27] MEDS: AMIODARONE HCL 200 MG TAB PO SCH ×2 (11:36→22:29)
--- NOTE | 2020-02-27 12:50 | NUR ---
MD ROUNDS DR IYER AT BEDSIDE. NEW ORDERS RECEIVED/WILL CARRY OUT. WILL CONTINUE TO MONITOR
[2020-02-27 13:00] VITALS: BP_SYST 152; BP_SYST 167; BP_DIAS 85
--- NOTE | 2020-02-27 13:00 | NUR ---
OTILIA CATH PATIENT RIGHT NECK OTILIA CATH REMOVED BY DR JAMESON. PRESSURE TO NECK FOR 10 MINS. NO BLEEDING TO SITE. PATIENT TOLERATED WELL. WILL CONTINUE TO MONITOR
[2020-02-27] MEDS ORDERED: HALOPERIDOL LACTATE 5 MG/ML INJ VIAL IM PRN (13:15)
--- NOTE | 2020-02-27 13:15 | NUR ---
PICC LINE PICC LINE DRESSING CHANGED D/T PATIENT TEGADERM BEING REMOVED. PATIENT TOLERATED WELL
--- NOTE | 2020-02-27 13:41 | NUR ---
SS consult regarding hospice evaluation. Due to pts cognitive level unable to discuss discharge planning. Contacted sister, Liliana, regarding providers orders. Discussed rehab vs. hospice and pts current condition. Presently pt is a max assist for all ambulation and communicates at times. Per sister she wants pt to have rehab for physical therapy to give him a chance to get stronger. Discussed with sister that pt will need a PT evaluation to assess and provide recommendations. Per sister if it is not approved, she would want to appeal it. Pt resides alone since his spouse passed 3 years ago. Pts sister, Liliana, resides in [place] and she states that the home is unlivable. Contacted covering nurse to request PT evaluation and requested that case briefer, Tasia, obtain information for SNF facilities and authorization from [facility]. Provided sister information for She[facility] for follow up on tomorrow.
--- NOTE | 2020-02-27 13:47 | NUR ---
Attempted PT eval. Pt is very lethargic and only opens eyes for a few seconds and returns to sleep.
--- NOTE | 2020-02-27 14:30 | NUR ---
Called [facility] [phone] and spoke with Lacy Coordinator stated the patient has SNF Benefits. Insurance pays 100% for first 20 days, day 21-30 patent has to pay $100 a day, then Day 31-100 the insurance pays 100%. For transportation to the SNF we are to call [phone].
--- NOTE | 2020-02-27 14:55 | NUR ---
Called Dr. Aj and ask to place a SNF order for the patient, stated she would.
--- NOTE | 2020-02-27 15:00 | NUR ---
Spoke with Celso Cortez at [facility] [phone] Ext [phone] and gave verbal update on the patient and requested the patient be transferred. Gave the name of 2 SNF's to call, stated she will give them authorization after the patient is accepted, and they call for the auth. or I can call her after we get one to accept the patient. Gave the name of [facility] [phone] and [facility] [phone].
--- NOTE | 2020-02-27 15:10 | NUR ---
PICC LINE SPOKE WITH DR IYER RE: PATIENT PICC LINE PLACEMENT PER DR IYER; SPEAK WITH PICC LINE RN. FELICE, PICC LINE RN, WILL ASSESS PATIENT. WILL CONTINUE TO MONITOR
--- NOTE | 2020-02-27 15:33 | NUR ---
Faxed SNF Transfer paper work to [facility] , Ivy Admission Coordinator, and [facility] , Domonique Admission Coordinator, FAX #[phone].
--- NOTE | 2020-02-27 15:57 | NUR ---
PICC LINE PER PICC LINE RN, FELICE; KARLA TO USE PICC LINE MIDLINE PLACEMENT IN RIGHT AXILLARY VEIN AND DRESSING IS C/D/I
--- NOTE | 2020-02-27 16:00 | NUR ---
RESTLESS PATIENT RESTLESS IN BED, GRABBING/PULLING AT TAO AND PICC LINE. WILL MEDICATE PER MD ORDERS
[2020-02-27 16:37] VITALS: BP 157/93
--- NOTE | 2020-02-27 19:20 | NUR ---
Opening Shift Note Assumed care of patient. Patient laying supine w/ HOB at 80 degrees. Patient is resting with eyes closed. Respirations even and unlabored. No signs of distress or SOB. Sitter at bedside for safety. Bed in lowest/locked position, bed rails up x2, call light within reach. Instructed on POC and to call for assist PRN. Will continue to monitor for changes Q1hr and PRN.
[2020-02-27 21:59] VITALS: BP 146/71
[2020-02-27] MEDS ORDERED: MEROPENEM 500MG IVPB 50 ML IV SCH (22:00)
[2020-02-27] MEDS: MEROPENEM 1GM IVPB 100 ML IV SCH (22:28)
[2020-02-27] MEDS: LORazepam 2MG/ML-1ML VIAL IV SCH (22:28)
[2020-02-28] MEDS: ACCU-CHEK COMFORT CURVE STRIP VI SCH ×6 (00:29→20:43)
[2020-02-28 05:00] VITALS: BP 145/70
[2020-02-28] MEDS: MEROPENEM 1GM IVPB 100 ML IV SCH (06:23)
[2020-02-28] MEDS: INSULIN LANTUS (GLARGINE) 1 /0.01ml (100units/ml) SC SCH (06:31)
[2020-02-28 06:44] LABS: Potassium 3.2 mmol/L (3.5-5.1)
[2020-02-28 07:15] LABS: BUN/Creatinine Ratio 22.6; Calcium 8.3 mg/dL (8.5-10.1)
[2020-02-28 09:00] VITALS: BP 148/91
--- NOTE | 2020-02-28 09:27 | NUR ---
Called [facility] [phone] and spoke to Domonique admission coordinator stated she will review the chart and call me back.
--- NOTE | 2020-02-28 09:29 | NUR ---
Called [facility] [phone] per the dishwashing machine operator, admission coordinator is not in until 1000 and to call back
[2020-02-28] MEDS: SODIUM CHLOR 0.9% PF (SALINE LOCK) 10ML VIAL/SYR IV SCH ×2 (10:00→21:44)
[2020-02-28] MEDS: AMIODARONE HCL 200 MG TAB PO SCH ×2 (11:03→21:45)
[2020-02-28] MEDS: LORazepam 2MG/ML-1ML VIAL IV SCH ×2 (11:04→21:45)
--- NOTE | 2020-02-28 11:40 | NUR ---
Nutrition Followup Note Wt 141.5 kg Pt was with RN, manuel drawn for clean up and changing when rounded this morning. Pt is currently with a Pureed diet with a poor appetite per RN doc. EN support Nepro CS 1.8 has been suspended d/t high residual per RN doc. Pt last HD was 02/19, no more HD per records. Est energy needs 4837-2691 kcal (11-14 kcal/kg BW 151kg) Est protein needs 75-91g (1-1.2/kg IBW) Will monitor and reassess prn. Labs: K 3.2 L, BUN 28 H CREAT 1.24 H GLU 194 H ALB 1.9 L BM: Pt with 1 BM today per Rn note Skin: BS 11 high risk, full details in nursing care attendant note PES: 1) Altered nutrition related labs aeb pt with elevated RFTs, hyponatremia, hyperkalemia, hyperglycemia r/t current and chronic medical conditions 2) Inadequate oral intake aeb pt with NPO diet order rt current medical condition Comments Will continue to monitor NPO status, EN tolerance, skin status, pertinent labs and weight trends. Will f/u in 2-3 days Rec: 1) Consider Glucerna 1.2 at a goal rate of 65ml/hr if pt off HD 2) Advance diet as medically feasible 3) Continue current plan of care
--- NOTE | 2020-02-28 12:15 | NUR ---
Called [facility] [phone] no answer, Called [facility] [phone] spoke with the recycling center operator Mallory, put me on hold to speak to the admission coordinator and waited 10 minutes and she never answered.
[2020-02-28 13:00] VITALS: BP 160/68
--- NOTE | 2020-02-28 15:55 | NUR ---
Received a call from Liliana bagley sister wanting to know if we had found a SNF for him to go to, informed her that we had not but when we do we will call and let her know.
--- NOTE | 2020-02-28 16:00 | NUR ---
Called Celso WHALEN [phone] Ext [phone] explain to her that we have not been able to get in touch with the two SNF's that she gave us yesterday to call. Gave the number for 4 more SNF's to get in touch with [facility] [phone], [facility] [phone], [facility] [phone], [facility] [phone].
[2020-02-28 17:00] VITALS: BP 149/74
--- NOTE | 2020-02-28 19:35 | NUR ---
Opening Shift Note Assumed care of patient, awake and alert X3. No S/S of distress/SOB or pain. Instructed on POC and to call for assist PRN, will continue to monitor for changes Q1hr and PRN. Sitter at bedside. Patient on 2L via nasal cannula. Bed locked and in the lowest position. Addendum: 02/28/20 at 2301 by BARRY CORONADO RN RN Patient is on 4L via nasal cannula
[2020-02-28 20:00] VITALS: BP 158/74
--- NOTE | 2020-02-29 02:00 | NUR ---
Paged Hospitalist to get patient on a sliding scale. His blood sugars have been trending high up to the 250s
--- NOTE | 2020-02-29 02:20 | NUR ---
Hospitalist called back and requested the pt be put on a mild sliding scale Q6H
[2020-02-29] MEDS ORDERED: DEXTROSE (50%) 50ML SYRG IV PRN (02:30)
[2020-02-29 06:15] VITALS: BP 117/54
[2020-02-29] MEDS: ACCU-CHEK COMFORT CURVE STRIP VI SCH ×5 (06:29→23:49)
[2020-02-29] MEDS: InsuLIN REG 1unit/0.01ml Soln (100units/ml) SC SCH ×4 (06:33→23:50)
[2020-02-29] MEDS: INSULIN LANTUS (GLARGINE) 1 /0.01ml (100units/ml) SC SCH (07:00)
[2020-02-29 07:03] LABS: Calcium 8.1 mg/dL (8.5-10.1); Potassium 3.6 mmol/L (3.5-5.1)
[2020-02-29 07:07] LABS: BUN/Creatinine Ratio 23.3
[2020-02-29 09:59] VITALS: BP 115/66
[2020-02-29] MEDS: AMIODARONE HCL 200 MG TAB PO SCH ×2 (10:10→22:38)
[2020-02-29] MEDS: LORazepam 2MG/ML-1ML VIAL IV SCH ×2 (10:10→22:37)
[2020-02-29] MEDS: SODIUM CHLOR 0.9% PF (SALINE LOCK) 10ML VIAL/SYR IV SCH ×2 (10:10→22:38)
[2020-02-29] MEDS ORDERED: cefTRIAXone 1GM/50ML D5W 50 ML IV ONE (11:30)
[2020-02-29] MEDS ORDERED: DOXYCYCLINE 100 MG TAB/CAP PO ONE (11:30)
--- NOTE | 2020-02-29 11:30 | NUR ---
TAO D/C D/C'ed TAO PER MD ORDERS. APPROXIMATELY 430 PERFECTO CLEAR URINE IN TAO. PATIENT TOLERATED WELL
--- NOTE | 2020-02-29 11:45 | NUR ---
MD ROUNDS DR IYER AT BEDSIDE. NEW ORDERS RECEIVED/WILL CARRY OUT. WILL CONTINUE TO MONITOR
[2020-02-29 12:43] VITALS: BP 118/80
--- NOTE | 2020-02-29 13:23 | NUR ---
RN OTOLARYNGOLOGY SPOKE WITH LUTHER SINGH RE: PATIENT HAS BEEN ACCEPTED TO [facility]. FACILITY REQUESTING AN IN-HOUSE COVID SWAB. NOTIFIED MD, WILL CARRY OUT.
--- NOTE | 2020-02-29 13:35 | NUR ---
LAB COVID SWAB COLLECTED AND WALKED TO LAB PER ORDERS
--- NOTE | 2020-02-29 14:07 | NUR ---
Called [facility] [phone] and spoke with Ivy Admission Coordinator and stated they had to change their rooms around due to COVID and they have no beds. Spoke to Domonique Admission Coordinator at [facility] and stated they have no male beds.
--- NOTE | 2020-02-29 14:45 | NUR ---
Called Celso [phone] [id number] and left a message to call back to explain that the facilities that she gave us to call for placement are not accepting patient we need other facilities or another solution from her. Called [facility] [phone] an spoke to Nina at provider services and explain to her that the [facility] [phone] stated they cannot take a patient in a W/C or gurney and our patient is in a W/C. Stated they are suppose to take W/C patients per their agreement and she will call them to facilitate the transfer when we need it.
--- NOTE | 2020-02-29 16:00 | NUR ---
Called Celso [phone] for PHI and ask if she received my message regarding placement for the patient, stated no, express to her that we had a facility that will accept the patient [facility] [phone] Laura admission coordinator, stated she got a message from her but did not call her back, express to her that we are having a hard time finding a place for the patient and she has accepted. Stated it is not in their area, stated she would call her and call me back.
--- NOTE | 2020-02-29 16:07 | NUR ---
D/C Planning Regarding social service consult for SNF placement for physical therapy. MARLEE Dozier provided me with a contracted list for SNF placement. Faxed clinical information to [facility] [phone], [facility] [phone], [facility] [phone] and [facility] [phone]. Per representatives with these facilities are unable to accept patient at this time due to not accepting new patient at this time. Faxed clinical information to [facility]. Per Laura with [facility] they are able to accept patient and will need a new in house COVID test before admitting. MALREE Dozier will obtain authorization from patient health plan. Informed ANDREEA Ceron.
--- NOTE | 2020-02-29 16:12 | NUR ---
Received a call from Celso Cortez at [facility] [phone] stated she spoke with Laura admission coordinator from [facility] [phone] and stated the patient can go there but has to wait until tomorrow.
[2020-02-29 16:38] VITALS: BP 132/73
--- NOTE | 2020-02-29 19:05 | NUR ---
Opening Shift Note Assumed care of patient, awake and alert X2. No S/S of distress/SOB or pain. Instructed on POC and to call for assist PRN, will continue to monitor for changes Q1hr and PRN. Pt on 2L of nasal cannula. Sitter at bedside. Bed locked and in the lowest position with call light within reach.
[2020-02-29 22:00] VITALS: BP 109/48
[2020-02-29] MEDS: DOXYCYCLINE 100 MG TAB/CAP PO SCH (22:38)
[2020-03-01 05:00] VITALS: BP 128/66
[2020-03-01] MEDS: ACCU-CHEK COMFORT CURVE STRIP VI SCH ×2 (06:22→12:01)
[2020-03-01] MEDS: InsuLIN REG 1unit/0.01ml Soln (100units/ml) SC SCH ×2 (06:22→12:01)
[2020-03-01] MEDS ORDERED: INSULIN LANTUS (GLARGINE) 1 /0.01ml (100units/ml) SC SCH (07:00)
[2020-03-01 08:16] LABS: Calcium 7.9 mg/dL (8.5-10.1); Potassium 3.1 mmol/L (3.5-5.1)
[2020-03-01 08:18] LABS: BUN/Creatinine Ratio 24.4
[2020-03-01 09:00] VITALS: BP 144/70
[2020-03-01] MEDS ORDERED: cefTRIAXone 1GM/50ML D5W 50 ML IV SCH (09:00)
[2020-03-01] MEDS ORDERED: ASPirin 81 mg TAB PO ONE (09:30)
--- NOTE | 2020-03-01 09:31 | NUR ---
Received a call from Celso WHALEN for [facility] stated she has given the authorization to [facility] and the patient is able to be transferred.
[2020-03-01] MEDS: SODIUM CHLOR 0.9% PF (SALINE LOCK) 10ML VIAL/SYR IV SCH (09:40)
[2020-03-01] MEDS: AMIODARONE HCL 200 MG TAB PO SCH (09:40)
[2020-03-01] MEDS: DOXYCYCLINE 100 MG TAB/CAP PO SCH (09:40)
[2020-03-01] MEDS: LORazepam 2MG/ML-1ML VIAL IV SCH (09:48)
[2020-03-01] MEDS ORDERED: ASPirin 81 mg TAB PO SCH (10:00)
[2020-03-01] MEDS ORDERED: TICAGRELOR 90 MG TAB PO SCH (10:00)
--- NOTE | 2020-03-01 11:10 | NUR ---
Called and spoke with [place] provider at [facility] stated we do not need a authorization to transport the patient by [facility], they just have to submit the claim, patient needs O2 at 2l. Transport company that was given [facility] can only take the patient 50 miles and doesn't have W/C or gurney ability. Patient is weak and not able to stand or sit for long periods.
[2020-03-01] MEDS ORDERED: POTASSIUM EFFERVESENT TAB 25 MEQ PO ONE (11:45)
--- NOTE | 2020-03-01 11:45 | NUR ---
Spoke with Laura admission coordinator at [facility] and patient's bed number is [id number], number to call report is [phone], states he has not been assigned an MD but we can still transfer him. Spoke with the nurse Jie and stated to have the patient picked up at 1400.
--- NOTE | 2020-03-01 11:55 | NUR ---
FAMILY UPDATE UPDATED SISTER, CHADWICK, RE: PATIENT TRANSFER
[2020-03-01 12:24] VITALS: BP 144/70
--- NOTE | 2020-03-01 12:30 | NUR ---
Received a call from Laura admission coordinator at [facility], stated the accepting is Tigist Persaud MD
--- NOTE | 2020-03-01 12:45 | NUR ---
Called [facility] and spoke with Marisela cotton dispatcher set pick time for 1400.
--- NOTE | 2020-03-01 13:20 | NUR ---
LAB MRSA SWAB SENT TO LAB PER MD ORDERS
--- NOTE | 2020-03-01 15:32 | NUR ---
REPORT REPORT CALLED TO PRASHANTH AT [facility] Addendum: 03/01/20 at 1537 by ZINA CRUZ RN RN [phone]
--- NOTE | 2020-03-01 16:38 | NUR ---
DISCHARGE TO SNF Discharge instructions given as ordered. Encourage to follow up with PMD as instructed. All questions and concerns addressed. Patient verbalized understanding. Patient taken to ambulance via gurney with [facility] with all personal belongings, accompanied by ambulance personnel. No distress noted at time of departure.
== END 2020-03-01 16:38 | DRG 871 ==
LOC: EDBD 18:46 → ER 18:46 → TELE 18:47 → ICU WEST 02-18 03:46 → CENTRAL 02-25 21:32 → TELE-CENTR 02-27 10:55 → CENTRAL 02-27 17:22
PROVIDERS: ADMIT Nurse Practitioner Family; ATTEND Internal Medicine Nephrology
PROC: 5A1945Z Respiratory Ventilation, 24-96 Consecutive Hours (ICD-10-PCS; principal; 2020-02-18)
PROC: 0BH17EZ Insertion of Endotracheal Airway into Trachea, Via Natural or Artificial Opening (ICD-10-PCS; 2020-02-18)
PROC: 05H733Z Insertion of Infusion Device into Right Axillary Vein, Percutaneous Approach (ICD-10-PCS; 2020-02-18)
PROC: 0BH17EZ Insertion of Endotracheal Airway into Trachea, Via Natural or Artificial Opening (ICD-10-PCS; 2020-02-18)
PROC: 02HV33Z Insertion of Infusion Device into Superior Vena Cava, Percutaneous Approach (ICD-10-PCS; 2020-02-18)
PROC: 4A143B0 Monitoring of Venous Pressure, Central, Percutaneous Approach (ICD-10-PCS; 2020-02-20)
PROC: 05HM33Z Insertion of Infusion Device into Right Internal Jugular Vein, Percutaneous Approach (ICD-10-PCS; 2020-02-20)
PROC: 5A1945Z Respiratory Ventilation, 24-96 Consecutive Hours (ICD-10-PCS; 2020-02-22)
PROC: 5A09357 Assistance with Respiratory Ventilation, Less than 24 Consecutive Hours, Continuous Positive Airway Pressure (ICD-10-PCS; 2020-02-22)
PROC: 5A2204Z Restoration of Cardiac Rhythm, Single (ICD-10-PCS; 2020-02-22)
PROC: 5A1935Z Respiratory Ventilation, Less than 24 Consecutive Hours (ICD-10-PCS; 2020-02-24)
DX: A41.9 Sepsis, unspecified organism (principal); J96.01 Acute respiratory failure with hypoxia; G93.41 Metabolic encephalopathy; R65.21 Severe sepsis with septic shock; I21.4 Non-ST elevation (NSTEMI) myocardial infarction; N17.0 Acute kidney failure with tubular necrosis; J18.9 Pneumonia, unspecified organism; N39.0 Urinary tract infection, site not specified; N18.4 Chronic kidney disease, stage 4 (severe); E87.1 Hypo-osmolality and hyponatremia; I48.92 Unspecified atrial flutter; Z99.11 Dependence on respirator [ventilator] status; C18.9 Malignant neoplasm of colon, unspecified; E66.01 Morbid (severe) obesity due to excess calories; E87.5 Hyperkalemia; Z66 Do not resuscitate; B19.20 Unspecified viral hepatitis C without hepatic coma; D63.8 Anemia in other chronic diseases classified elsewhere; E11.22 Type 2 diabetes mellitus with diabetic chronic kidney disease; E11.65 Type 2 diabetes mellitus with hyperglycemia; E88.09 Other disorders of plasma-protein metabolism, not elsewhere classified; G47.33 Obstructive sleep apnea (adult) (pediatric); E87.6 Hypokalemia; Z20.828 Contact with and (suspected) exposure to other viral communicable diseases; I12.9 Hypertensive chronic kidney disease with stage 1 through stage 4 chronic kidney disease, or unspecified chronic kidney disease; I25.10 Atherosclerotic heart disease of native coronary artery without angina pectoris; I48.0 Paroxysmal atrial fibrillation; Z51.5 Encounter for palliative care; Z79.02 Long term (current) use of antithrombotics/antiplatelets; Z82.3 Family history of stroke; Z82.49 Family history of ischemic heart disease and other diseases of the circulatory system; I25.2 Old myocardial infarction; Z83.3 Family history of diabetes mellitus; Z85.038 Personal history of other malignant neoplasm of large intestine; Z90.49 Acquired absence of other specified parts of digestive tract; Z93.1 Gastrostomy status; Z95.1 Presence of aortocoronary bypass graft; Z79.84 Long term (current) use of oral hypoglycemic drugs
CPT/HCPCS: 31500; 36415; 36569; 36600; 51702; 70450; 71045; 71250; 74176; 80048; 80053; 80074; 80307; 80320; 81001; 82140; 82570; 82728; 82805; 82962; 83036; 83540; 83550; 83605; 83880; 84132; 84156; 84300; 84443; 84484; 85025; 85610; 85730; 87040; 87070; 87081; 87086; 87205; 87426; 92610; 92960; 93005; 93306; 94002; 94003; 94640; 95819; 96361; 96365; 96366; 96375; 99291; G0378; J0330; J0610; J0696; J1815; J2001; J2185; J2250; J2405; J2543; J7060; Q9956